=== PATIENT | male | born 1945 | race Caucasian/White ===

== ENCOUNTER 2017-06-24 18:50 | Inpatient (IN) | payer MEDICARE, OTHER ==
[~2017-06-24] VITALS: Ht 182.9 cm; Wt 121.0 kg
[2017-06-24] MEDS: MIDAZOLAM DRIP 50 mg/50mL 50 ML IV SCH (19:15)
[2017-06-24 21:03] LABS: Basophils # (auto) 0 uL; Basophils % (auto) 0.2 % (0.0-2.0); Eosinophils # (auto) 0 uL; Hematocrit 37.7 % (41.0-53.0); Hemoglobin 12.5 g/dL (13.5-17.5); Lymphocytes # (auto) 0.6 uL; Mean Corpuscular Hemoglobin 31.4 pg (28.0-32.0); Mean Corpuscular Hgb Conc. 33.2 g/dL (32.0-36.0); Mean Corpuscular Volume 94.4 fL (80.0-100.0); Monocytes # (auto) 0.6 uL; Monocytes % (auto) 8.4 % (0.0-12.0); Neutrophils # (auto) 5.9 uL; Neutrophils % (auto) 83.4 % (37.0-80.0); Nucleated Red Blood Cells % 0.2 %; Platelet Count (auto) 177 10^3/uL (140-450); Red Cell Distribution Width 13.4 % (11.8-14.3)
[2017-06-24 21:16] LABS: INR 1.24 (0.9-1.15); Partial Thromboplastin Time 28.1 sec (22.64-33.71); Prothrombin Time 13.6 sec (9.37-12.3)
[2017-06-24 21:29] LABS: Albumin 2.6 g/dL (3.4-5.0); BUN/Creatinine Ratio 12.7; Bilirubin, Total 0.6 mg/dL (0.2-1.0); Calcium 7.4 mg/dL (8.5-10.1); Magnesium 1.4 mg/dL (1.6-2.6); Potassium 3.5 mmol/L (3.5-5.1); Total Protein 5.9 g/dL (6.4-8.2)
[2017-06-24 21:32] LABS: Lactic Acid w/Reflex 2.2 mmol/L (0.4-2.0)
[2017-06-24] MEDS ORDERED: SODIUM CHLORIDE 0.9% 2,000 ML IV ONE (22:30)
[2017-06-24 22:33] VITALS: BP 142/90
[2017-06-24] MEDS ORDERED: PROPOFOL 100 ML IV ONE (23:30)
[2017-06-24] MEDS: PROPOFOL 100 ML IV SCH (23:46)
[2017-06-25] VITALS (26 sets, daily range): BP systolic 104–133; BP diastolic 59–101
[2017-06-25] MEDS ORDERED: VANCOMYCIN PER PHARMACY 0 MG IV SCH (00:15)
[2017-06-25] MEDS ORDERED: FUROSEMIDE 40 MG/4 ML VIAL IV ONE (00:15)
[2017-06-25] MEDS ORDERED: VANCOMYCIN 1GM/250ML 250 ML IV ONE (00:30)
[2017-06-25 03:35] LABS: Urine WBC None Seen /hpf (0 - 3)
[2017-06-25 04:08] LABS: Alcohol, Urine < 3.0 mg/dL (0-5); Amphetamine Screen, Urine NEGATIVE (NEGATIVE); Barbiturate Scree,Urine NEGATIVE (NEGATIVE); Benzodiazephine Screen, Urine POSITIVE (NEGATIVE); Cannabinoid Screen, Urine NEGATIVE (NEGATIVE); Cocaine Screen, Urine NEGATIVE (NEGATIVE); Opiate Scree,Urine NEGATIVE (NEGATIVE); Phencyclidine Screen, Urine NEGATIVE (NEGATIVE)
[2017-06-25 04:19] LABS: Urine Blood Trace /uL (Negative)
[2017-06-25 04:30] LABS: Urine Bacteria FEW /hpf (None Seen); Urine Hyaline Cast 1+ /lpf (0 - 2)
[2017-06-25 04:31] LABS: Urine Mucus FEW (None Seen)
[2017-06-25 06:01] LABS: Basophils # (auto) 0 uL; Basophils % (auto) 0.1 % (0.0-2.0); Eosinophils # (auto) 0 uL; Hematocrit 33.5 % (41.0-53.0); Hemoglobin 11.1 g/dL (13.5-17.5); Lymphocytes # (auto) 0.7 uL; Lymphocytes % (auto) 13.7 % (10.0-50.0); Mean Corpuscular Hgb Conc. 33.1 g/dL (32.0-36.0); Mean Corpuscular Volume 93.6 fL (80.0-100.0); Monocytes # (auto) 0.7 uL; Monocytes % (auto) 14.2 % (0.0-12.0); Neutrophils # (auto) 3.5 uL; Nucleated Red Blood Cells % 0.1 %; Platelet Count (auto) 154 10^3/uL (140-450); Red Blood Cells 3.57 10^6/uL (4.5-5.90); Red Cell Distribution Width 13.6 % (11.8-14.3); White Blood Cell 4.9 10^3/uL (4.4-10.8)
[2017-06-25 06:38] LABS: BUN/Creatinine Ratio 12.4; Calcium 7.3 mg/dL (8.5-10.1)
[2017-06-25 06:43] LABS: Potassium 2.7 mmol/L (3.5-5.1)
[2017-06-25] MEDS: PANTOPRAZOLE 40 MG/10 ML VIAL IV SCH (08:13)
[2017-06-25] MEDS: POTASSIUM CHL 20MEQ/50ML 50 ML IV SCH ×2 (08:13→09:04)
[2017-06-25] MEDS: ENOXAPARIN SOD 30 MG/0.3 ML SYRINGE SC SCH (08:13)
[2017-06-25] MEDS: VANCOMYCIN 1,500 MG in D5W 5% 250 ML IV SCH ×2 (11:07→22:46)
[2017-06-25 15:41] LABS: Potassium 3.4 mmol/L (3.5-5.1)
[2017-06-25] MEDS ORDERED: PIPERACILLIN-TAZOB 3.375GM 50 ML IV SCH (17:00)
[2017-06-25] MEDS: MIDAZOLAM DRIP 50 mg/50mL 50 ML IV SCH ×2 (17:55→22:46)
[2017-06-25] MEDS: LEVOFLOXACIN 750MG 150 ML IV SCH (18:01)
[2017-06-25] MEDS: PROPOFOL 100 ML IV SCH (23:46)
[2017-06-26] VITALS (55 sets, daily range): BP systolic 106–164; BP diastolic 63–96
[2017-06-26] MEDS: MIDAZOLAM DRIP 50 mg/50mL 50 ML IV SCH (04:20)
[2017-06-26] MEDS ORDERED: ATOR10TA PO (04:35)
[2017-06-26] MEDS ORDERED: LISI-646 PO (04:35)
[2017-06-26] MEDS ORDERED: ATEN50TA PO (04:35)
[2017-06-26] MEDS ORDERED: FURO40TA PO (04:35)
[2017-06-26] MEDS ORDERED: ALLO300T2 PO (04:35)
[2017-06-26] MEDS ORDERED: ASPI81CH43 PO (04:35)
[2017-06-26 04:39] LABS: Basophils # (auto) 0 uL; Basophils % (auto) 0.3 % (0.0-2.0); Eosinophils # (auto) 0 uL; Eosinophils % (auto) 0.1 % (0.0-7.0); Hematocrit 33.5 % (41.0-53.0); Lymphocytes # (auto) 0.9 uL; Lymphocytes % (auto) 14.6 % (10.0-50.0); Mean Corpuscular Hemoglobin 30.7 pg (28.0-32.0); Mean Corpuscular Hgb Conc. 32.9 g/dL (32.0-36.0); Mean Corpuscular Volume 93.4 fL (80.0-100.0); Monocytes % (auto) 15.7 % (0.0-12.0); Neutrophils # (auto) 4.2 uL; Neutrophils % (auto) 69.3 % (37.0-80.0); Nucleated Red Blood Cells % 0.1 %; Platelet Count (auto) 153 10^3/uL (140-450); Red Blood Cells 3.58 10^6/uL (4.5-5.90); Red Cell Distribution Width 13.6 % (11.8-14.3); White Blood Cell 6.1 10^3/uL (4.4-10.8)
[2017-06-26 05:10] LABS: Albumin 2.2 g/dL (3.4-5.0); BUN/Creatinine Ratio 16.2; Calcium 7.5 mg/dL (8.5-10.1); Potassium 3.2 mmol/L (3.5-5.1)
[2017-06-26 05:13] LABS: Bilirubin, Total 0.6 mg/dL (0.2-1.0); Total Protein 5.2 g/dL (6.4-8.2)
[2017-06-26] MEDS ORDERED: POTASSIUM CHLORIDE 40 MEQ, LIDOCAINE 1% (LOCAL ANESTH.) 4 ML in SODIUM CHL 0.9% 100 ML IV ONE (09:00)
[2017-06-26] MEDS ORDERED: SODIUM CHLORIDE 0.9% 1,000 ML IV ONE (09:00)
[2017-06-26] MEDS: PANTOPRAZOLE 40 MG/10 ML VIAL IV SCH (10:14)
[2017-06-26] MEDS: ENOXAPARIN SOD 30 MG/0.3 ML SYRINGE SC SCH (10:15)
[2017-06-26] MEDS: POTASSIUM CHL 20MEQ/50ML 50 ML IV SCH ×2 (19:15→21:20)
[2017-06-26] MEDS: LEVOFLOXACIN 750MG 150 ML IV SCH (19:16)
[2017-06-26] MEDS ORDERED: IOHEXOL 350 MG/ML 100ML IJ ONE (21:42)
[2017-06-26] MEDS: CARVEDILOL 3.125 MG TAB NG SCH (22:28)
[2017-06-26] MEDS: VANCOMYCIN 1,500 MG in D5W 5% 250 ML IV SCH (22:28)
[2017-06-26] MEDS: PROPOFOL 100 ML IV SCH (23:46)
[2017-06-27] VITALS (93 sets, daily range): BP systolic 102–154; BP diastolic 65–99
[2017-06-27 04:21] LABS: Basophils # (auto) 0 uL; Basophils % (auto) 0.3 % (0.0-2.0); Eosinophils # (auto) 0 uL; Eosinophils % (auto) 0.1 % (0.0-7.0); Hematocrit 35.1 % (41.0-53.0); Hemoglobin 11.3 g/dL (13.5-17.5); Lymphocytes # (auto) 0.8 uL; Lymphocytes % (auto) 10.6 % (10.0-50.0); Mean Corpuscular Hemoglobin 30.3 pg (28.0-32.0); Mean Corpuscular Hgb Conc. 32.2 g/dL (32.0-36.0); Mean Corpuscular Volume 93.8 fL (80.0-100.0); Monocytes # (auto) 1.3 uL; Monocytes % (auto) 16.1 % (0.0-12.0); Neutrophils # (auto) 5.8 uL; Neutrophils % (auto) 72.9 % (37.0-80.0); Nucleated Red Blood Cells % 0.1 %; Platelet Count (auto) 173 10^3/uL (140-450); Red Blood Cells 3.74 10^6/uL (4.5-5.90); Red Cell Distribution Width 13.7 % (11.8-14.3)
[2017-06-27 05:20] LABS: Albumin 2.1 g/dL (3.4-5.0); BUN/Creatinine Ratio 18.6; Bilirubin, Total 0.6 mg/dL (0.2-1.0); Calcium 7.5 mg/dL (8.5-10.1); Potassium 3.9 mmol/L (3.5-5.1); Total Protein 5.3 g/dL (6.4-8.2)
[2017-06-27] MEDS: PANTOPRAZOLE 40 MG/10 ML VIAL IV SCH (09:49)
[2017-06-27] MEDS: MIDAZOLAM DRIP 50 mg/50mL 50 ML IV SCH (09:50)
[2017-06-27] MEDS: ENOXAPARIN SOD 30 MG/0.3 ML SYRINGE SC SCH (09:50)
[2017-06-27] MEDS: LISINOPRIL 5 MG TAB PO SCH (09:51)
[2017-06-27] MEDS: CARVEDILOL 3.125 MG TAB NG SCH ×2 (09:51→21:32)
[2017-06-27] MEDS ORDERED: SODIUM CHLORIDE 0.9% 1,000 ML IV ONE (11:15)
[2017-06-27] MEDS: LEVOFLOXACIN 750MG 150 ML IV SCH (18:23)
[2017-06-27] MEDS: VANCOMYCIN 1,500 MG in D5W 5% 250 ML IV SCH (21:32)
[2017-06-27] MEDS: PROPOFOL 100 ML IV SCH (23:46)
[2017-06-28] VITALS (62 sets, daily range): BP systolic 94–168; BP diastolic 55–116
[2017-06-28 03:22] LABS: Basophils # (auto) 0.2 uL; Basophils % (auto) 1.9 % (0.0-2.0); Eosinophils # (auto) 0.1 uL; Eosinophils % (auto) 0.7 % (0.0-7.0); Hematocrit 35.4 % (41.0-53.0); Hemoglobin 11.5 g/dL (13.5-17.5); Lymphocytes % (auto) 10.2 % (10.0-50.0); Mean Corpuscular Hemoglobin 30.4 pg (28.0-32.0); Mean Corpuscular Hgb Conc. 32.5 g/dL (32.0-36.0); Mean Corpuscular Volume 93.5 fL (80.0-100.0); Monocytes # (auto) 1.4 uL; Monocytes % (auto) 14.1 % (0.0-12.0); Neutrophils # (auto) 7.3 uL; Neutrophils % (auto) 73.1 % (37.0-80.0); Platelet Count (auto) 181 10^3/uL (140-450); Red Blood Cells 3.79 10^6/uL (4.5-5.90); Red Cell Distribution Width 13.5 % (11.8-14.3)
[2017-06-28 03:43] LABS: BUN/Creatinine Ratio 16.5; Bilirubin, Total 0.6 mg/dL (0.2-1.0); Calcium 7.5 mg/dL (8.5-10.1); Potassium 3.3 mmol/L (3.5-5.1); Total Protein 5.2 g/dL (6.4-8.2)
[2017-06-28] MEDS: PANTOPRAZOLE 40 MG/10 ML VIAL IV SCH (09:53)
[2017-06-28] MEDS: ENOXAPARIN SOD 40 MG/0.4 ML SYRINGE SC SCH (09:53)
[2017-06-28] MEDS: CARVEDILOL 3.125 MG TAB NG SCH ×2 (09:54→22:04)
[2017-06-28] MEDS: LISINOPRIL 5 MG TAB PO SCH (10:08)
[2017-06-28] MEDS ORDERED: POTASSIUM CHL 20MEQ/50ML 50 ML IV ONE (11:30)
[2017-06-28] MEDS: MIDAZOLAM DRIP 50 mg/50mL 50 ML IV SCH (16:48)
[2017-06-28] MEDS: LEVOFLOXACIN 750MG 150 ML IV SCH (17:32)
[2017-06-28] MEDS: VANCOMYCIN 1,500 MG in D5W 5% 250 ML IV SCH (23:36)
[2017-06-28] MEDS: PROPOFOL 100 ML IV SCH (23:46)
[2017-06-29] VITALS (63 sets, daily range): BP systolic 102–156; BP diastolic 61–99
[2017-06-29 04:11] LABS: Basophils # (auto) 0 uL; Basophils % (auto) 0.2 % (0.0-2.0); Eosinophils # (auto) 0.1 uL; Eosinophils % (auto) 1.2 % (0.0-7.0); Hematocrit 33.9 % (41.0-53.0); Lymphocytes % (auto) 9.7 % (10.0-50.0); Mean Corpuscular Hemoglobin 30.5 pg (28.0-32.0); Mean Corpuscular Hgb Conc. 32.5 g/dL (32.0-36.0); Mean Corpuscular Volume 93.7 fL (80.0-100.0); Monocytes # (auto) 1.5 uL; Monocytes % (auto) 15.6 % (0.0-12.0); Neutrophils # (auto) 7.2 uL; Neutrophils % (auto) 73.3 % (37.0-80.0); Platelet Count (auto) 203 10^3/uL (140-450); Red Blood Cells 3.62 10^6/uL (4.5-5.90); Red Cell Distribution Width 13.3 % (11.8-14.3); White Blood Cell 9.8 10^3/uL (4.4-10.8)
[2017-06-29 04:31] LABS: BUN/Creatinine Ratio 17.9; Bilirubin, Total 0.5 mg/dL (0.2-1.0); Calcium 7.7 mg/dL (8.5-10.1); Potassium 3.4 mmol/L (3.5-5.1); Total Protein 5.3 g/dL (6.4-8.2)
[2017-06-29] MEDS: CARVEDILOL 3.125 MG TAB NG SCH ×2 (10:05→21:49)
[2017-06-29] MEDS: PANTOPRAZOLE 40 MG/10 ML VIAL IV SCH (10:05)
[2017-06-29] MEDS: LISINOPRIL 5 MG TAB PO SCH (10:06)
[2017-06-29] MEDS: ENOXAPARIN SOD 40 MG/0.4 ML SYRINGE SC SCH (10:06)
[2017-06-29] MEDS ORDERED: POTASSIUM CHL 20MEQ/50ML 50 ML IV ONE ×2 (11:15→18:00)
[2017-06-29] MEDS: cloNIDine HCL 0.1 MG TAB PO PRN (15:30)
[2017-06-29] MEDS: LEVOFLOXACIN 750MG 150 ML IV SCH (17:43)
[2017-06-29] MEDS: methylPREDNISolone SOD SUCC 40 MG/ML VL IV SCH ×2 (18:00→23:45)
[2017-06-29] MEDS: IPRATROPIUM BROM 0.5 MG/2.5ML INH SOL NEB SCH (18:49)
[2017-06-29] MEDS: BUDESONIDE (INHALATION) 0.5 MG/2 ML NEB NEB SCH (18:50)
[2017-06-29] MEDS: ALBUTEROL SULF 2.5 MG/0.5ML(0.5%) NEB SOLN NEB SCH (18:50)
[2017-06-29] MEDS: MIDAZOLAM DRIP 50 mg/50mL 50 ML IV SCH (20:38)
[2017-06-29] MEDS: VANCOMYCIN 1,500 MG in D5W 5% 250 ML IV SCH (23:32)
[2017-06-30] VITALS (23 sets, daily range): BP systolic 122–164; BP diastolic 63–100
[2017-06-30] MEDS: PROPOFOL 100 ML IV SCH ×2 (00:49→23:46)
[2017-06-30 04:08] LABS: Basophils # (auto) 0 uL; Basophils % (auto) 0.2 % (0.0-2.0); Eosinophils # (auto) 0 uL; Hematocrit 36.8 % (41.0-53.0); Hemoglobin 11.6 g/dL (13.5-17.5); Lymphocytes # (auto) 0.3 uL; Lymphocytes % (auto) 6.2 % (10.0-50.0); Mean Corpuscular Hemoglobin 29.3 pg (28.0-32.0); Mean Corpuscular Hgb Conc. 31.4 g/dL (32.0-36.0); Mean Corpuscular Volume 93.3 fL (80.0-100.0); Monocytes # (auto) 0.1 uL; Monocytes % (auto) 1.5 % (0.0-12.0); Neutrophils # (auto) 4.6 uL; Neutrophils % (auto) 92.1 % (37.0-80.0); Platelet Count (auto) 231 10^3/uL (140-450); Red Blood Cells 3.95 10^6/uL (4.5-5.90); Red Cell Distribution Width 13.1 % (11.8-14.3)
[2017-06-30] MEDS: cloNIDine HCL 0.1 MG TAB PO PRN (04:13)
[2017-06-30 04:26] LABS: Albumin 2.2 g/dL (3.4-5.0); BUN/Creatinine Ratio 21.6; Calcium 8.7 mg/dL (8.5-10.1); Potassium 4.1 mmol/L (3.5-5.1)
[2017-06-30 04:29] LABS: Bilirubin, Total 0.5 mg/dL (0.2-1.0); Total Protein 5.7 g/dL (6.4-8.2)
[2017-06-30] MEDS: methylPREDNISolone SOD SUCC 40 MG/ML VL IV SCH ×4 (06:20→23:51)
[2017-06-30] MEDS: IPRATROPIUM BROM 0.5 MG/2.5ML INH SOL NEB SCH ×4 (06:56→18:00)
[2017-06-30] MEDS: ALBUTEROL SULF 2.5 MG/0.5ML(0.5%) NEB SOLN NEB SCH ×4 (06:56→18:00)
[2017-06-30] MEDS: BUDESONIDE (INHALATION) 0.5 MG/2 ML NEB NEB SCH ×2 (10:19→18:00)
[2017-06-30] MEDS ORDERED: DEXTROSE (50%) 50ML SYRG IV PRN (10:45)
[2017-06-30] MEDS: PANTOPRAZOLE 40 MG/10 ML VIAL IV SCH (11:12)
[2017-06-30] MEDS: CARVEDILOL 3.125 MG TAB NG SCH ×2 (11:12→22:20)
[2017-06-30] MEDS: ENOXAPARIN SOD 40 MG/0.4 ML SYRINGE SC SCH (11:12)
[2017-06-30] MEDS: LISINOPRIL 5 MG TAB PO SCH (11:13)
[2017-06-30] MEDS: InsuLIN REG 1unit/0.01ml Soln (100units/ml) SC SCH ×3 (12:00→23:52)
[2017-06-30] MEDS: ACCU-CHEK COMFORT CURVE STRIP VI SCH ×3 (12:42→23:51)
[2017-06-30] MEDS: LEVOFLOXACIN 750MG 150 ML IV SCH (17:12)
[2017-06-30] MEDS: D5W/SOD CHLO 0.9% 1,000 ML IV SCH (17:13)
[2017-06-30] MEDS: ACETAMINOPHEN 650 mg PER 20 mL UD GT PRN (17:30)
[2017-06-30] MEDS: MIDAZOLAM DRIP 50 mg/50mL 50 ML IV SCH (19:24)
[2017-06-30] MEDS: VANCOMYCIN 1,500 MG in D5W 5% 250 ML IV SCH (23:09)
[2017-07-01] VITALS (18 sets, daily range): BP systolic 122–178; BP diastolic 54–108
[2017-07-01] MEDS: D5W/SOD CHLO 0.9% 1,000 ML IV SCH (00:05)
[2017-07-01] MEDS: cloNIDine HCL 0.1 MG TAB PO PRN (04:07)
[2017-07-01 05:23] LABS: Basophils # (auto) 0 uL; Basophils % (auto) 0.7 % (0.0-2.0); Eosinophils # (auto) 0 uL; Hematocrit 33.2 % (41.0-53.0); Hemoglobin 10.7 g/dL (13.5-17.5); Lymphocytes # (auto) 0.3 uL; Lymphocytes % (auto) 5.7 % (10.0-50.0); Mean Corpuscular Hemoglobin 29.8 pg (28.0-32.0); Mean Corpuscular Hgb Conc. 32.2 g/dL (32.0-36.0); Mean Corpuscular Volume 92.5 fL (80.0-100.0); Monocytes # (auto) 0.3 uL; Neutrophils % (auto) 87.6 % (37.0-80.0); Platelet Count (auto) 238 10^3/uL (140-450); Red Blood Cells 3.59 10^6/uL (4.5-5.90); Red Cell Distribution Width 13.4 % (11.8-14.3); White Blood Cell 5.7 10^3/uL (4.4-10.8)
[2017-07-01] MEDS: ACCU-CHEK COMFORT CURVE STRIP VI SCH ×3 (05:34→17:57)
[2017-07-01 05:47] LABS: BUN/Creatinine Ratio 25.7; Calcium 8.5 mg/dL (8.5-10.1); Potassium 3.5 mmol/L (3.5-5.1)
[2017-07-01] MEDS: BUDESONIDE (INHALATION) 0.5 MG/2 ML NEB NEB SCH ×2 (06:10→19:01)
[2017-07-01] MEDS: ALBUTEROL SULF 2.5 MG/0.5ML(0.5%) NEB SOLN NEB SCH ×4 (06:10→19:01)
[2017-07-01] MEDS: IPRATROPIUM BROM 0.5 MG/2.5ML INH SOL NEB SCH ×4 (06:10→19:01)
[2017-07-01] MEDS: methylPREDNISolone SOD SUCC 40 MG/ML VL IV SCH ×3 (06:20→17:56)
[2017-07-01] MEDS: InsuLIN REG 1unit/0.01ml Soln (100units/ml) SC SCH ×3 (06:20→17:57)
[2017-07-01] MEDS: CARVEDILOL 3.125 MG TAB NG SCH ×2 (10:20→22:04)
[2017-07-01] MEDS: ENOXAPARIN SOD 40 MG/0.4 ML SYRINGE SC SCH (10:21)
[2017-07-01] MEDS: LISINOPRIL 5 MG TAB PO SCH (10:21)
[2017-07-01] MEDS: PANTOPRAZOLE 40 MG/10 ML VIAL IV SCH (10:21)
[2017-07-01] MEDS ORDERED: METOPROLOL TARTRATE 25 MG TAB PO ONE (11:15)
[2017-07-01] MEDS: LEVOFLOXACIN 750MG 150 ML IV SCH (18:01)
[2017-07-01] MEDS: METOPROLOL TARTRATE 25 MG TAB PO SCH (22:04)
[2017-07-01] MEDS: PROPOFOL 100 ML IV SCH (23:46)
[2017-07-02] VITALS (7 sets, daily range): BP systolic 142–176; BP diastolic 84–96
[2017-07-02] MEDS: methylPREDNISolone SOD SUCC 40 MG/ML VL IV SCH ×5 (00:45→23:16)
[2017-07-02] MEDS: VANCOMYCIN 1,500 MG in D5W 5% 250 ML IV SCH ×2 (00:45→22:53)
[2017-07-02] MEDS: D5W/SOD CHLO 0.9% 1,000 ML IV SCH ×3 (00:48→14:55)
[2017-07-02] MEDS: cloNIDine HCL 0.1 MG TAB PO PRN (03:31)
[2017-07-02] MEDS: ACCU-CHEK COMFORT CURVE STRIP VI SCH ×5 (05:31→23:32)
[2017-07-02] MEDS: InsuLIN REG 1unit/0.01ml Soln (100units/ml) SC SCH ×5 (05:31→23:16)
[2017-07-02] MEDS: IPRATROPIUM BROM 0.5 MG/2.5ML INH SOL NEB SCH ×4 (06:19→19:31)
[2017-07-02] MEDS: BUDESONIDE (INHALATION) 0.5 MG/2 ML NEB NEB SCH ×2 (06:19→19:31)
[2017-07-02] MEDS: ALBUTEROL SULF 2.5 MG/0.5ML(0.5%) NEB SOLN NEB SCH ×4 (06:19→19:31)
[2017-07-02] MEDS: CARVEDILOL 3.125 MG TAB NG SCH ×2 (10:00→21:26)
[2017-07-02] MEDS: METOPROLOL TARTRATE 25 MG TAB PO SCH ×2 (10:00→21:25)
[2017-07-02] MEDS: LISINOPRIL 5 MG TAB PO SCH (10:09)
[2017-07-02] MEDS: ENOXAPARIN SOD 40 MG/0.4 ML SYRINGE SC SCH (10:09)
[2017-07-02] MEDS: PANTOPRAZOLE 40 MG/10 ML VIAL IV SCH (10:10)
[2017-07-02] MEDS: LEVOFLOXACIN 750MG 150 ML IV SCH (17:40)
[2017-07-03 04:16] VITALS: BP 153/101
[2017-07-03] MEDS: cloNIDine HCL 0.1 MG TAB PO PRN ×2 (04:20→15:47)
[2017-07-03] MEDS: methylPREDNISolone SOD SUCC 40 MG/ML VL IV SCH ×3 (05:31→17:56)
[2017-07-03] MEDS: ACCU-CHEK COMFORT CURVE STRIP VI SCH ×3 (05:31→17:56)
[2017-07-03] MEDS: D5W/SOD CHLO 0.9% 1,000 ML IV SCH ×2 (05:32→09:58)
[2017-07-03] MEDS: InsuLIN REG 1unit/0.01ml Soln (100units/ml) SC SCH ×3 (05:32→17:57)
[2017-07-03] MEDS: IPRATROPIUM BROM 0.5 MG/2.5ML INH SOL NEB SCH ×4 (06:05→18:35)
[2017-07-03] MEDS: ALBUTEROL SULF 2.5 MG/0.5ML(0.5%) NEB SOLN NEB SCH ×4 (06:05→18:35)
[2017-07-03 06:58] LABS: Basophils # (auto) 0 uL; Basophils % (auto) 0.1 % (0.0-2.0); Eosinophils # (auto) 0 uL; Hematocrit 32.5 % (41.0-53.0); Hemoglobin 10.8 g/dL (13.5-17.5); Lymphocytes # (auto) 0.4 uL; Mean Corpuscular Hemoglobin 30.3 pg (28.0-32.0); Mean Corpuscular Hgb Conc. 33.1 g/dL (32.0-36.0); Mean Corpuscular Volume 91.5 fL (80.0-100.0); Monocytes # (auto) 0.4 uL; Monocytes % (auto) 7.1 % (0.0-12.0); Neutrophils # (auto) 5.2 uL; Neutrophils % (auto) 85.8 % (37.0-80.0); Nucleated Red Blood Cells % 0.1 %; Platelet Count (auto) 242 10^3/uL (140-450); Red Blood Cells 3.55 10^6/uL (4.5-5.90); Red Cell Distribution Width 13.3 % (11.8-14.3); White Blood Cell 6.1 10^3/uL (4.4-10.8)
[2017-07-03 07:08] LABS: BUN/Creatinine Ratio 26.3; Calcium 8.1 mg/dL (8.5-10.1); Potassium 3.3 mmol/L (3.5-5.1)
[2017-07-03 08:00] VITALS: BP 162/90
[2017-07-03] MEDS ORDERED: POTASSIUM CHLORIDE 20 MEQ, LIDOCAINE 1% (LOCAL ANESTH.) 2 ML in SODIUM CHL 0.9% 100 ML IV ONE (09:45)
[2017-07-03] MEDS: BUDESONIDE (INHALATION) 0.5 MG/2 ML NEB NEB SCH ×2 (09:48→22:25)
[2017-07-03] MEDS: ENOXAPARIN SOD 40 MG/0.4 ML SYRINGE SC SCH (09:57)
[2017-07-03] MEDS: PANTOPRAZOLE 40 MG/10 ML VIAL IV SCH (09:58)
[2017-07-03] MEDS ORDERED: POTASSIUM CHL 20MEQ/100ML 100 ML IV ONE (10:08)
[2017-07-03] MEDS: METOPROLOL TARTRATE 25 MG TAB PO SCH (10:23)
[2017-07-03] MEDS: LISINOPRIL 5 MG TAB PO SCH (10:23)
[2017-07-03] MEDS: CARVEDILOL 3.125 MG TAB NG SCH ×2 (10:24→21:52)
[2017-07-03 11:57] VITALS: BP 168/78
[2017-07-03] MEDS ORDERED: POTASSIUM CHL 20 Meq TABLET PO ONE (12:00)
[2017-07-03 15:50] VITALS: BP 162/135
[2017-07-03] MEDS: LEVOFLOXACIN 750MG 150 ML IV SCH (18:00)
[2017-07-03 20:00] VITALS: BP 137/22
[2017-07-03] MEDS: MAGNESIUM OXIDE 400 MG TAB PO SCH (21:50)
[2017-07-03] MEDS: VANCOMYCIN 1,500 MG in D5W 5% 250 ML IV SCH ×2 (21:53→23:00)
[2017-07-03] MEDS: ACETAMINOPHEN 650 mg PER 20 mL UD GT PRN (21:53)
[2017-07-04] VITALS (7 sets, daily range): BP systolic 128–172; BP diastolic 53–107
[2017-07-04] MEDS: methylPREDNISolone SOD SUCC 40 MG/ML VL IV SCH ×5 (00:15→23:35)
[2017-07-04] MEDS: ACCU-CHEK COMFORT CURVE STRIP VI SCH ×5 (00:16→23:29)
[2017-07-04] MEDS: InsuLIN REG 1unit/0.01ml Soln (100units/ml) SC SCH ×5 (00:16→23:35)
[2017-07-04] MEDS: ALBUTEROL SULF 2.5 MG/0.5ML(0.5%) NEB SOLN NEB SCH ×4 (06:06→18:34)
[2017-07-04] MEDS: IPRATROPIUM BROM 0.5 MG/2.5ML INH SOL NEB SCH ×4 (06:06→18:34)
[2017-07-04] MEDS: D5W/SOD CHLO 0.9% 1,000 ML IV SCH ×2 (08:05→21:49)
[2017-07-04] MEDS: MAGNESIUM OXIDE 400 MG TAB PO SCH ×2 (10:00→21:46)
[2017-07-04] MEDS: ENOXAPARIN SOD 40 MG/0.4 ML SYRINGE SC SCH (10:00)
[2017-07-04] MEDS: CARVEDILOL 3.125 MG TAB NG SCH ×2 (10:00→21:45)
[2017-07-04] MEDS: LISINOPRIL 5 MG TAB PO SCH ×2 (10:00→18:02)
[2017-07-04] MEDS: BUDESONIDE (INHALATION) 0.5 MG/2 ML NEB NEB SCH ×2 (10:05→18:34)
[2017-07-04] MEDS: PANTOPRAZOLE 40 MG/10 ML VIAL IV SCH (10:17)
[2017-07-04] MEDS: hydrALAZINE HCL 20 MG/ML VL IV PRN ×2 (11:39→18:54)
[2017-07-04] MEDS ORDERED: MORPHINE SULFATE 10 MG/ML INJ 1ML SDV IV PRN (13:30)
[2017-07-04] MEDS ORDERED: HALOPERIDOL LACTATE 5 MG/ML INJ VIAL IM PRN (18:15)
[2017-07-04] MEDS ORDERED: LACTULOSE 20Gm/30ML SOLN PO ONE (18:15)
[2017-07-04] MEDS: LEVOFLOXACIN 750MG 150 ML IV SCH (18:16)
[2017-07-05] MEDS: cloNIDine HCL 0.1 MG TAB PO PRN (03:32)
[2017-07-05] MEDS ORDERED: FUROSEMIDE 40 MG/4 ML VIAL IV ONE (03:45)
[2017-07-05] MEDS ORDERED: diphenhdrAMINE HCL 50 MG/1 ML VL IV ONE (03:45)
[2017-07-05] MEDS ORDERED: FUROSEMIDE 40 MG/4 ML VIAL ONE (03:51)
[2017-07-05] MEDS ORDERED: diphenhdrAMINE HCL 50 MG/1 ML VL ONE (03:51)
[2017-07-05 04:28] VITALS: BP 163/117
[2017-07-05] MEDS: Diabetisource AC 1 Liter GT SCH (05:18)
[2017-07-05 05:35] LABS: Basophils # (auto) 0 uL; Basophils % (auto) 0.2 % (0.0-2.0); Eosinophils # (auto) 0 uL; Hematocrit 36.6 % (41.0-53.0); Hemoglobin 11.9 g/dL (13.5-17.5); Lymphocytes # (auto) 0.4 uL; Mean Corpuscular Hemoglobin 29.9 pg (28.0-32.0); Mean Corpuscular Hgb Conc. 32.4 g/dL (32.0-36.0); Mean Corpuscular Volume 92.3 fL (80.0-100.0); Monocytes # (auto) 0.7 uL; Monocytes % (auto) 7.2 % (0.0-12.0); Neutrophils # (auto) 9.1 uL; Neutrophils % (auto) 88.6 % (37.0-80.0); Platelet Count (auto) 250 10^3/uL (140-450); Red Blood Cells 3.97 10^6/uL (4.5-5.90); White Blood Cell 10.3 10^3/uL (4.4-10.8)
[2017-07-05 05:52] LABS: Albumin 2.5 g/dL (3.4-5.0); BUN/Creatinine Ratio 28.7; Calcium 8.7 mg/dL (8.5-10.1); Potassium 3.5 mmol/L (3.5-5.1)
[2017-07-05 05:55] LABS: Bilirubin, Total 0.6 mg/dL (0.2-1.0); Total Protein 5.6 g/dL (6.4-8.2)
[2017-07-05] MEDS: methylPREDNISolone SOD SUCC 40 MG/ML VL IV SCH ×3 (05:57→18:21)
[2017-07-05] MEDS: ACCU-CHEK COMFORT CURVE STRIP VI SCH ×3 (05:57→17:44)
[2017-07-05] MEDS: InsuLIN REG 1unit/0.01ml Soln (100units/ml) SC SCH ×3 (05:57→17:44)
[2017-07-05] MEDS: BUDESONIDE (INHALATION) 0.5 MG/2 ML NEB NEB SCH ×2 (07:30→19:13)
[2017-07-05] MEDS: ALBUTEROL SULF 2.5 MG/0.5ML(0.5%) NEB SOLN NEB SCH ×4 (07:30→19:12)
[2017-07-05] MEDS: IPRATROPIUM BROM 0.5 MG/2.5ML INH SOL NEB SCH ×4 (07:30→19:12)
[2017-07-05 07:55] VITALS: BP 128/86
[2017-07-05] MEDS: PANTOPRAZOLE 40 MG/10 ML VIAL IV SCH (10:06)
[2017-07-05] MEDS: ENOXAPARIN SOD 40 MG/0.4 ML SYRINGE SC SCH (10:07)
[2017-07-05] MEDS: MAGNESIUM OXIDE 400 MG TAB PO SCH ×2 (10:07→21:47)
[2017-07-05] MEDS: LISINOPRIL 5 MG TAB PO SCH (10:08)
[2017-07-05] MEDS: CARVEDILOL 3.125 MG TAB NG SCH ×2 (10:08→21:47)
[2017-07-05] MEDS: D5W/SOD CHLO 0.9% 1,000 ML IV SCH (10:45)
[2017-07-05] MEDS ORDERED: LORazepam 2MG/ML-1ML VIAL IV PRN (11:00)
[2017-07-05 12:00] VITALS: BP 156/112
[2017-07-05] MEDS: ALPRAZolam 0.5 MG TAB NG PRN (13:11)
[2017-07-05] MEDS: hydrALAZINE HCL 20 MG/ML VL IV PRN ×2 (13:18→22:07)
[2017-07-05 16:00] VITALS: BP 128/89
[2017-07-05] MEDS ORDERED: HALOPERIDOL LACTATE 5 MG/ML INJ VIAL IM PRN (17:30)
[2017-07-05] MEDS ORDERED: LEVOFLOXACIN 500MG 100 ML IV SCH (18:09)
[2017-07-05] MEDS ORDERED: LEVOFLOXACIN 250MG 50 ML IV SCH (19:00)
[2017-07-05 19:16] VITALS: BP 128/89
[2017-07-05 19:53] VITALS: BP 139/94
[2017-07-06] VITALS (7 sets, daily range): BP systolic 131–160; BP diastolic 79–104
[2017-07-06] MEDS: D5W/SOD CHLO 0.9% 1,000 ML IV SCH ×2 (01:00→15:26)
[2017-07-06] MEDS: methylPREDNISolone SOD SUCC 40 MG/ML VL IV SCH ×4 (02:49→17:26)
[2017-07-06] MEDS: ACCU-CHEK COMFORT CURVE STRIP VI SCH ×4 (02:49→17:27)
[2017-07-06] MEDS: InsuLIN REG 1unit/0.01ml Soln (100units/ml) SC SCH ×4 (02:50→18:10)
[2017-07-06] MEDS: cloNIDine HCL 0.1 MG TAB PO PRN ×2 (03:56→16:00)
[2017-07-06] MEDS: ALPRAZolam 0.5 MG TAB NG PRN (03:56)
[2017-07-06 05:30] LABS: Basophils # (auto) 0 uL; Eosinophils # (auto) 0 uL; Hematocrit 31.4 % (41.0-53.0); Hemoglobin 10.1 g/dL (13.5-17.5); Lymphocytes # (auto) 0.3 uL; Lymphocytes % (auto) 2.7 % (10.0-50.0); Mean Corpuscular Hemoglobin 29.7 pg (28.0-32.0); Mean Corpuscular Hgb Conc. 32.2 g/dL (32.0-36.0); Mean Corpuscular Volume 92.4 fL (80.0-100.0); Monocytes # (auto) 0.7 uL; Monocytes % (auto) 7.7 % (0.0-12.0); Neutrophils # (auto) 8.6 uL; Neutrophils % (auto) 89.6 % (37.0-80.0); Platelet Count (auto) 190 10^3/uL (140-450); Red Blood Cells 3.39 10^6/uL (4.5-5.90); Red Cell Distribution Width 14.2 % (11.8-14.3); White Blood Cell 9.6 10^3/uL (4.4-10.8)
[2017-07-06] MEDS: ALBUTEROL SULF 2.5 MG/0.5ML(0.5%) NEB SOLN NEB SCH ×4 (05:43→19:14)
[2017-07-06] MEDS: BUDESONIDE (INHALATION) 0.5 MG/2 ML NEB NEB SCH ×2 (05:43→19:14)
[2017-07-06] MEDS: IPRATROPIUM BROM 0.5 MG/2.5ML INH SOL NEB SCH ×4 (05:43→19:14)
[2017-07-06 05:44] LABS: Albumin 2.1 g/dL (3.4-5.0); BUN/Creatinine Ratio 33.7; Calcium 8.1 mg/dL (8.5-10.1); Potassium 3.5 mmol/L (3.5-5.1)
[2017-07-06 05:47] LABS: Bilirubin, Total 0.3 mg/dL (0.2-1.0); Total Protein 4.6 g/dL (6.4-8.2)
[2017-07-06] MEDS: PANTOPRAZOLE 40 MG/10 ML VIAL IV SCH (10:13)
[2017-07-06] MEDS: ENOXAPARIN SOD 40 MG/0.4 ML SYRINGE SC SCH (10:14)
[2017-07-06] MEDS: CARVEDILOL 3.125 MG TAB NG SCH ×2 (10:14→22:15)
[2017-07-06] MEDS: LISINOPRIL 5 MG TAB PO SCH (10:14)
[2017-07-06] MEDS: MAGNESIUM OXIDE 400 MG TAB PO SCH ×2 (10:14→22:15)
[2017-07-06] MEDS: Diabetisource AC 1 Liter GT SCH (16:53)
[2017-07-06] MEDS: LEVOFLOXACIN 500MG 100 ML IV SCH (17:26)
[2017-07-06] MEDS: ACETAMINOPHEN 650 mg PER 20 mL UD GT PRN (20:39)
[2017-07-07] MEDS: ACCU-CHEK COMFORT CURVE STRIP VI SCH ×5 (00:20→23:41)
[2017-07-07] MEDS: InsuLIN REG 1unit/0.01ml Soln (100units/ml) SC SCH ×5 (00:20→23:44)
[2017-07-07] MEDS: methylPREDNISolone SOD SUCC 40 MG/ML VL IV SCH ×5 (00:25→23:44)
[2017-07-07] MEDS: D5W/SOD CHLO 0.9% 1,000 ML IV SCH ×2 (02:45→16:02)
[2017-07-07] MEDS: hydrALAZINE HCL 20 MG/ML VL IV PRN ×2 (03:20→20:18)
[2017-07-07 03:52] VITALS: BP 159/93
[2017-07-07] MEDS: IPRATROPIUM BROM 0.5 MG/2.5ML INH SOL NEB SCH ×4 (05:48→20:37)
[2017-07-07] MEDS: ALBUTEROL SULF 2.5 MG/0.5ML(0.5%) NEB SOLN NEB SCH ×4 (05:49→20:37)
[2017-07-07 06:08] LABS: Basophils # (auto) 0 uL; Basophils % (auto) 0.1 % (0.0-2.0); Eosinophils # (auto) 0 uL; Hematocrit 37.6 % (41.0-53.0); Hemoglobin 12.1 g/dL (13.5-17.5); Lymphocytes # (auto) 0.2 uL; Lymphocytes % (auto) 2.2 % (10.0-50.0); Mean Corpuscular Hemoglobin 29.9 pg (28.0-32.0); Mean Corpuscular Hgb Conc. 32.3 g/dL (32.0-36.0); Mean Corpuscular Volume 92.5 fL (80.0-100.0); Monocytes # (auto) 0.6 uL; Neutrophils # (auto) 10.5 uL; Neutrophils % (auto) 92.7 % (37.0-80.0); Platelet Count (auto) 187 10^3/uL (140-450); Red Blood Cells 4.06 10^6/uL (4.5-5.90); Red Cell Distribution Width 14.4 % (11.8-14.3); White Blood Cell 11.4 10^3/uL (4.4-10.8)
[2017-07-07 06:19] LABS: Albumin 2.5 g/dL (3.4-5.0); BUN/Creatinine Ratio 40.9; Bilirubin, Total 0.4 mg/dL (0.2-1.0); Potassium 3.6 mmol/L (3.5-5.1); Total Protein 5.6 g/dL (6.4-8.2)
[2017-07-07] MEDS: cloNIDine HCL 0.1 MG TAB PO PRN (06:50)
[2017-07-07] MEDS: BUDESONIDE (INHALATION) 0.5 MG/2 ML NEB NEB SCH ×2 (07:45→20:37)
[2017-07-07 08:00] VITALS: BP 124/79
[2017-07-07] MEDS: PANTOPRAZOLE 40 MG/10 ML VIAL IV SCH (10:31)
[2017-07-07] MEDS: LISINOPRIL 5 MG TAB PO SCH (10:32)
[2017-07-07] MEDS: CARVEDILOL 3.125 MG TAB NG SCH ×2 (10:32→21:18)
[2017-07-07] MEDS: ENOXAPARIN SOD 40 MG/0.4 ML SYRINGE SC SCH (10:32)
[2017-07-07] MEDS: MAGNESIUM OXIDE 400 MG TAB PO SCH ×2 (10:32→21:18)
[2017-07-07 11:59] VITALS: BP 146/84
[2017-07-07 15:50] VITALS: BP 107/69
[2017-07-07] MEDS: LACTULOSE 20Gm/30ML SOLN PO PRN (17:38)
[2017-07-07] MEDS: PRO-STAT 64 30ML PO SCH (17:38)
[2017-07-07] MEDS: LEVOFLOXACIN 500MG 100 ML IV SCH (17:38)
[2017-07-07 20:00] VITALS: BP 157/103
[2017-07-08] VITALS (7 sets, daily range): BP systolic 137–178; BP diastolic 86–106
[2017-07-08] MEDS: hydrALAZINE HCL 20 MG/ML VL IV PRN (04:11)
[2017-07-08] MEDS: methylPREDNISolone SOD SUCC 40 MG/ML VL IV SCH ×4 (05:22→23:47)
[2017-07-08] MEDS: ACCU-CHEK COMFORT CURVE STRIP VI SCH ×4 (05:22→23:47)
[2017-07-08] MEDS: InsuLIN REG 1unit/0.01ml Soln (100units/ml) SC SCH ×4 (05:22→23:47)
[2017-07-08] MEDS: D5W/SOD CHLO 0.9% 1,000 ML IV SCH ×2 (05:22→18:45)
[2017-07-08 05:42] LABS: Hemoglobin 11.4 g/dL (13.5-17.5); Mean Corpuscular Hemoglobin 29.8 pg (28.0-32.0); Mean Corpuscular Hgb Conc. 32.7 g/dL (32.0-36.0); Mean Corpuscular Volume 91.4 fL (80.0-100.0); Platelet Count (auto) 179 10^3/uL (140-450); Red Blood Cells 3.83 10^6/uL (4.5-5.90); Red Cell Distribution Width 14.4 % (11.8-14.3); White Blood Cell 8.7 10^3/uL (4.4-10.8)
[2017-07-08 05:50] LABS: Band Neutrophils % (manual) 0; Basophils % (manual) 0 (0.0-2.0); Blast Cells 0; Eosinophils % (manual) 0 (0-7); Metamyelocytes % 0; Myelocytes % 0; Promyelocytes % 0; Reactive Lymphocytes 0
[2017-07-08 06:04] LABS: Albumin 2.4 g/dL (3.4-5.0); BUN/Creatinine Ratio 44.4; Calcium 8.4 mg/dL (8.5-10.1); Potassium 3.9 mmol/L (3.5-5.1)
[2017-07-08 06:06] LABS: Bilirubin, Total 0.4 mg/dL (0.2-1.0)
[2017-07-08 06:20] LABS: Lymphocytes % (manual) 2 (10.0-50.0); Monocytes % (manual) 6 (0-12)
[2017-07-08] MEDS: ALBUTEROL SULF 2.5 MG/0.5ML(0.5%) NEB SOLN NEB SCH ×4 (06:31→19:08)
[2017-07-08] MEDS: IPRATROPIUM BROM 0.5 MG/2.5ML INH SOL NEB SCH ×4 (06:31→19:09)
[2017-07-08] MEDS: BUDESONIDE (INHALATION) 0.5 MG/2 ML NEB NEB SCH ×2 (06:31→19:09)
[2017-07-08] MEDS: MAGNESIUM OXIDE 400 MG TAB PO SCH ×2 (10:13→21:30)
[2017-07-08] MEDS: ENOXAPARIN SOD 40 MG/0.4 ML SYRINGE SC SCH (10:13)
[2017-07-08] MEDS: PANTOPRAZOLE 40 MG/10 ML VIAL IV SCH (10:13)
[2017-07-08] MEDS: LISINOPRIL 5 MG TAB PO SCH (10:14)
[2017-07-08] MEDS: CARVEDILOL 3.125 MG TAB NG SCH ×2 (10:14→21:36)
[2017-07-08] MEDS: PRO-STAT 64 30ML PO SCH ×2 (10:15→18:56)
[2017-07-08] MEDS: LEVOFLOXACIN 500MG 100 ML IV SCH (18:56)
[2017-07-08] MEDS: cloNIDine HCL 0.1 MG TAB PO PRN (20:19)
[2017-07-09 04:00] VITALS: BP 142/69
[2017-07-09] MEDS: methylPREDNISolone SOD SUCC 40 MG/ML VL IV SCH ×3 (05:18→18:30)
[2017-07-09] MEDS: ACCU-CHEK COMFORT CURVE STRIP VI SCH ×3 (05:34→18:00)
[2017-07-09] MEDS: InsuLIN REG 1unit/0.01ml Soln (100units/ml) SC SCH ×3 (05:34→18:31)
[2017-07-09] MEDS: IPRATROPIUM BROM 0.5 MG/2.5ML INH SOL NEB SCH ×4 (06:16→19:25)
[2017-07-09] MEDS: ALBUTEROL SULF 2.5 MG/0.5ML(0.5%) NEB SOLN NEB SCH ×4 (06:16→19:25)
[2017-07-09] MEDS: BUDESONIDE (INHALATION) 0.5 MG/2 ML NEB NEB SCH ×2 (06:16→19:26)
[2017-07-09 08:00] VITALS: BP 148/86
[2017-07-09] MEDS: D5W/SOD CHLO 0.9% 1,000 ML IV SCH ×2 (08:05→21:25)
[2017-07-09] MEDS: PANTOPRAZOLE 40 MG/10 ML VIAL IV SCH (10:51)
[2017-07-09] MEDS: MAGNESIUM OXIDE 400 MG TAB PO SCH ×2 (10:51→22:03)
[2017-07-09] MEDS: LISINOPRIL 5 MG TAB PO SCH (10:52)
[2017-07-09] MEDS: CARVEDILOL 3.125 MG TAB NG SCH ×2 (10:52→22:03)
[2017-07-09] MEDS: ENOXAPARIN SOD 40 MG/0.4 ML SYRINGE SC SCH (10:54)
[2017-07-09] MEDS: PRO-STAT 64 30ML PO SCH ×2 (10:55→18:30)
[2017-07-09 12:18] VITALS: BP 155/88
[2017-07-09 16:13] VITALS: BP 144/81
[2017-07-09] MEDS: LEVOFLOXACIN 500MG 100 ML IV SCH (18:29)
[2017-07-09] MEDS: hydrALAZINE HCL 20 MG/ML VL IV PRN (20:29)
[2017-07-09 20:32] VITALS: BP 150/101
[2017-07-09] MEDS: cloNIDine HCL 0.1 MG TAB PO PRN (23:29)
[2017-07-10] VITALS: BP 144/100
[2017-07-10] MEDS: ACCU-CHEK COMFORT CURVE STRIP VI SCH ×4 (00:26→18:17)
[2017-07-10] MEDS: methylPREDNISolone SOD SUCC 40 MG/ML VL IV SCH ×4 (00:26→17:45)
[2017-07-10] MEDS: InsuLIN REG 1unit/0.01ml Soln (100units/ml) SC SCH ×4 (00:27→18:17)
[2017-07-10 04:00] VITALS: BP 155/101
[2017-07-10] MEDS: BUDESONIDE (INHALATION) 0.5 MG/2 ML NEB NEB SCH ×2 (07:45→22:00)
[2017-07-10] MEDS: IPRATROPIUM BROM 0.5 MG/2.5ML INH SOL NEB SCH ×4 (07:45→18:55)
[2017-07-10] MEDS: ALBUTEROL SULF 2.5 MG/0.5ML(0.5%) NEB SOLN NEB SCH ×4 (07:45→18:55)
[2017-07-10 08:00] VITALS: BP 165/106
[2017-07-10] MEDS: PRO-STAT 64 30ML PO SCH ×2 (08:00→18:00)
[2017-07-10] MEDS: hydrALAZINE HCL 20 MG/ML VL IV PRN ×2 (08:13→22:15)
[2017-07-10 09:57] LABS: Basophils # (auto) 0 uL; Basophils % (auto) 0.3 % (0.0-2.0); Eosinophils # (auto) 0 uL; Hematocrit 36.7 % (41.0-53.0); Hemoglobin 11.9 g/dL (13.5-17.5); Lymphocytes # (auto) 0.4 uL; Lymphocytes % (auto) 5.6 % (10.0-50.0); Mean Corpuscular Hemoglobin 29.7 pg (28.0-32.0); Mean Corpuscular Hgb Conc. 32.5 g/dL (32.0-36.0); Mean Corpuscular Volume 91.2 fL (80.0-100.0); Monocytes # (auto) 0.8 uL; Monocytes % (auto) 11.6 % (0.0-12.0); Neutrophils # (auto) 5.9 uL; Neutrophils % (auto) 82.5 % (37.0-80.0); Platelet Count (auto) 149 10^3/uL (140-450); Red Blood Cells 4.02 10^6/uL (4.5-5.90); Red Cell Distribution Width 14.5 % (11.8-14.3); White Blood Cell 7.1 10^3/uL (4.4-10.8)
[2017-07-10 10:14] LABS: Albumin 2.6 g/dL (3.4-5.0); BUN/Creatinine Ratio 49.4; Bilirubin, Total 0.5 mg/dL (0.2-1.0); Calcium 7.8 mg/dL (8.5-10.1); Potassium 3.6 mmol/L (3.5-5.1); Total Protein 5.2 g/dL (6.4-8.2)
[2017-07-10] MEDS: D5W/SOD CHLO 0.9% 1,000 ML IV SCH ×2 (10:45→23:30)
[2017-07-10] MEDS: CARVEDILOL 3.125 MG TAB NG SCH ×2 (11:01→22:14)
[2017-07-10] MEDS: PANTOPRAZOLE 40 MG/10 ML VIAL IV SCH (11:10)
[2017-07-10] MEDS: MAGNESIUM OXIDE 400 MG TAB PO SCH ×2 (11:11→22:14)
[2017-07-10] MEDS: ENOXAPARIN SOD 40 MG/0.4 ML SYRINGE SC SCH (11:11)
[2017-07-10] MEDS: LISINOPRIL 5 MG TAB PO SCH (11:11)
[2017-07-10 11:53] VITALS: BP 159/86
[2017-07-10 16:00] VITALS: BP 117/68
[2017-07-10] MEDS: LEVOFLOXACIN 500MG 100 ML IV SCH (17:45)
[2017-07-10 19:57] VITALS: BP 141/90
[2017-07-11] VITALS: BP 170/120
[2017-07-11] MEDS: hydrALAZINE HCL 20 MG/ML VL IV PRN ×2 (03:12→16:19)
[2017-07-11 05:35] LABS: Basophils # (auto) 0 uL; Basophils % (auto) 0.1 % (0.0-2.0); Eosinophils # (auto) 0 uL; Hematocrit 36.7 % (41.0-53.0); Hemoglobin 12.1 g/dL (13.5-17.5); Lymphocytes # (auto) 0.2 uL; Lymphocytes % (auto) 2.6 % (10.0-50.0); Mean Corpuscular Hemoglobin 30.1 pg (28.0-32.0); Mean Corpuscular Hgb Conc. 32.9 g/dL (32.0-36.0); Mean Corpuscular Volume 91.5 fL (80.0-100.0); Monocytes # (auto) 0.6 uL; Monocytes % (auto) 6.2 % (0.0-12.0); Neutrophils # (auto) 8.5 uL; Neutrophils % (auto) 91.1 % (37.0-80.0); Platelet Count (auto) 152 10^3/uL (140-450); Red Blood Cells 4.01 10^6/uL (4.5-5.90); Red Cell Distribution Width 14.8 % (11.8-14.3); White Blood Cell 9.4 10^3/uL (4.4-10.8)
[2017-07-11] MEDS: methylPREDNISolone SOD SUCC 40 MG/ML VL IV SCH ×5 (06:00→23:55)
[2017-07-11] MEDS: InsuLIN REG 1unit/0.01ml Soln (100units/ml) SC SCH ×5 (06:00→23:55)
[2017-07-11] MEDS: ACCU-CHEK COMFORT CURVE STRIP VI SCH ×5 (06:00→23:55)
[2017-07-11 06:19] LABS: Albumin 2.5 g/dL (3.4-5.0); BUN/Creatinine Ratio 50.7; Bilirubin, Total 0.6 mg/dL (0.2-1.0); Calcium 7.8 mg/dL (8.5-10.1); Potassium 3.4 mmol/L (3.5-5.1); Total Protein 5.1 g/dL (6.4-8.2)
[2017-07-11] MEDS: IPRATROPIUM BROM 0.5 MG/2.5ML INH SOL NEB SCH ×4 (06:52→18:38)
[2017-07-11] MEDS: ALBUTEROL SULF 2.5 MG/0.5ML(0.5%) NEB SOLN NEB SCH ×4 (06:53→18:38)
[2017-07-11] MEDS: BUDESONIDE (INHALATION) 0.5 MG/2 ML NEB NEB SCH ×2 (06:53→18:39)
[2017-07-11 08:00] VITALS: BP 174/101
[2017-07-11] MEDS: cloNIDine HCL 0.1 MG TAB PO PRN (08:16)
[2017-07-11] MEDS: PRO-STAT 64 30ML PO SCH ×2 (08:16→17:51)
[2017-07-11] MEDS: PANTOPRAZOLE 40 MG/10 ML VIAL IV SCH (10:13)
[2017-07-11] MEDS: ENOXAPARIN SOD 40 MG/0.4 ML SYRINGE SC SCH (10:13)
[2017-07-11] MEDS: LISINOPRIL 5 MG TAB PO SCH (10:14)
[2017-07-11] MEDS: MAGNESIUM OXIDE 400 MG TAB PO SCH ×2 (10:14→22:20)
[2017-07-11] MEDS: CARVEDILOL 3.125 MG TAB NG SCH ×2 (10:14→22:20)
[2017-07-11 12:00] VITALS: BP 149/90
[2017-07-11] MEDS: D5W/SOD CHLO 0.9% 1,000 ML IV SCH (15:33)
[2017-07-11 16:00] VITALS: BP 153/100
[2017-07-11] MEDS: LEVOFLOXACIN 500MG 100 ML IV SCH (17:50)
[2017-07-11 19:50] VITALS: BP 160/93
[2017-07-12] MEDS: D5W/SOD CHLO 0.9% 1,000 ML IV SCH ×2 (02:45→17:04)
[2017-07-12 05:56] LABS: Basophils # (auto) 0 uL; Eosinophils # (auto) 0 uL; Eosinophils % (auto) 0.2 % (0.0-7.0); Hematocrit 35.2 % (41.0-53.0); Hemoglobin 11.6 g/dL (13.5-17.5); Lymphocytes # (auto) 0.8 uL; Mean Corpuscular Hemoglobin 30.1 pg (28.0-32.0); Mean Corpuscular Hgb Conc. 32.9 g/dL (32.0-36.0); Mean Corpuscular Volume 91.5 fL (80.0-100.0); Monocytes # (auto) 1.3 uL; Monocytes % (auto) 12.1 % (0.0-12.0); Neutrophils # (auto) 8.4 uL; Neutrophils % (auto) 79.7 % (37.0-80.0); Platelet Count (auto) 140 10^3/uL (140-450); Red Blood Cells 3.85 10^6/uL (4.5-5.90); Red Cell Distribution Width 14.6 % (11.8-14.3); White Blood Cell 10.6 10^3/uL (4.4-10.8)
[2017-07-12] MEDS: InsuLIN REG 1unit/0.01ml Soln (100units/ml) SC SCH ×3 (06:00→17:42)
[2017-07-12] MEDS: methylPREDNISolone SOD SUCC 40 MG/ML VL IV SCH ×3 (06:06→17:41)
[2017-07-12] MEDS: ACCU-CHEK COMFORT CURVE STRIP VI SCH ×3 (06:06→17:42)
[2017-07-12] MEDS: IPRATROPIUM BROM 0.5 MG/2.5ML INH SOL NEB SCH ×4 (06:08→19:10)
[2017-07-12] MEDS: ALBUTEROL SULF 2.5 MG/0.5ML(0.5%) NEB SOLN NEB SCH ×4 (06:08→19:10)
[2017-07-12 06:20] LABS: Albumin 2.3 g/dL (3.4-5.0); Bilirubin, Total 0.6 mg/dL (0.2-1.0); Calcium 7.5 mg/dL (8.5-10.1); Potassium 3.2 mmol/L (3.5-5.1); Total Protein 4.7 g/dL (6.4-8.2)
[2017-07-12 06:42] VITALS: BP 138/80
[2017-07-12] MEDS ORDERED: POTASSIUM CHL 20 Meq TABLET PO ONE (06:45)
[2017-07-12 08:00] VITALS: BP 158/89
[2017-07-12] MEDS: BUDESONIDE (INHALATION) 0.5 MG/2 ML NEB NEB SCH ×2 (10:00→19:10)
[2017-07-12] MEDS: PANTOPRAZOLE 40 MG/10 ML VIAL IV SCH (10:56)
[2017-07-12] MEDS: PRO-STAT 64 30ML PO SCH ×2 (10:56→17:41)
[2017-07-12] MEDS: MAGNESIUM OXIDE 400 MG TAB PO SCH ×2 (10:57→22:08)
[2017-07-12] MEDS: LISINOPRIL 5 MG TAB PO SCH (10:57)
[2017-07-12] MEDS: CARVEDILOL 3.125 MG TAB NG SCH ×2 (10:57→22:09)
[2017-07-12] MEDS: ENOXAPARIN SOD 40 MG/0.4 ML SYRINGE SC SCH (10:57)
[2017-07-12 13:00] VITALS: BP 143/84
[2017-07-12 17:00] VITALS: BP 156/111
[2017-07-12] MEDS: LEVOFLOXACIN 500MG 100 ML IV SCH (17:41)
[2017-07-12] MEDS ORDERED: POTASSIUM CHL 10% (20 MEQ/15ML) 15ml ORAL SOLN GT ONE (18:00)
[2017-07-12 21:44] VITALS: BP 162/78
[2017-07-12] MEDS: hydrALAZINE HCL 20 MG/ML VL IV PRN (23:34)
[2017-07-13] MEDS: methylPREDNISolone SOD SUCC 40 MG/ML VL IV SCH ×4 (00:34→18:28)
[2017-07-13] MEDS: ACCU-CHEK COMFORT CURVE STRIP VI SCH ×4 (00:34→18:28)
[2017-07-13] MEDS: InsuLIN REG 1unit/0.01ml Soln (100units/ml) SC SCH ×4 (00:42→18:29)
[2017-07-13 05:00] VITALS: BP 156/81
[2017-07-13] MEDS: D5W/SOD CHLO 0.9% 1,000 ML IV SCH ×2 (05:25→18:29)
[2017-07-13] MEDS: IPRATROPIUM BROM 0.5 MG/2.5ML INH SOL NEB SCH ×4 (06:24→20:24)
[2017-07-13] MEDS: ALBUTEROL SULF 2.5 MG/0.5ML(0.5%) NEB SOLN NEB SCH ×4 (06:24→20:24)
[2017-07-13 07:47] LABS: Basophils # (auto) 0 uL; Basophils % (auto) 0.4 % (0.0-2.0); Eosinophils # (auto) 0 uL; Hematocrit 37.4 % (41.0-53.0); Hemoglobin 12.2 g/dL (13.5-17.5); Lymphocytes # (auto) 0.3 uL; Lymphocytes % (auto) 4.1 % (10.0-50.0); Mean Corpuscular Hemoglobin 29.8 pg (28.0-32.0); Mean Corpuscular Hgb Conc. 32.5 g/dL (32.0-36.0); Mean Corpuscular Volume 91.9 fL (80.0-100.0); Monocytes # (auto) 0.4 uL; Monocytes % (auto) 5.2 % (0.0-12.0); Neutrophils # (auto) 7.7 uL; Neutrophils % (auto) 90.3 % (37.0-80.0); Platelet Count (auto) 125 10^3/uL (140-450); Red Blood Cells 4.07 10^6/uL (4.5-5.90); Red Cell Distribution Width 14.9 % (11.8-14.3); White Blood Cell 8.5 10^3/uL (4.4-10.8)
[2017-07-13] MEDS: PRO-STAT 64 30ML PO SCH ×2 (08:00→18:00)
[2017-07-13 08:03] LABS: Albumin 2.5 g/dL (3.4-5.0); BUN/Creatinine Ratio 43.2; Bilirubin, Total 0.6 mg/dL (0.2-1.0); Calcium 7.7 mg/dL (8.5-10.1); Potassium 3.5 mmol/L (3.5-5.1); Total Protein 5.1 g/dL (6.4-8.2)
[2017-07-13] MEDS ORDERED: LORazepam 2MG/ML-1ML VIAL IV PRN (09:00)
[2017-07-13 09:09] VITALS: BP 143/81
[2017-07-13] MEDS: PANTOPRAZOLE 40 MG/10 ML VIAL IV SCH (09:36)
[2017-07-13] MEDS: POTASSIUM CHL 10% (20 MEQ/15ML) 15ml ORAL SOLN GT SCH (09:37)
[2017-07-13] MEDS: MAGNESIUM OXIDE 400 MG TAB PO SCH ×2 (09:38→21:45)
[2017-07-13] MEDS: CARVEDILOL 3.125 MG TAB NG SCH ×2 (09:38→21:45)
[2017-07-13] MEDS: ENOXAPARIN SOD 40 MG/0.4 ML SYRINGE SC SCH (09:39)
[2017-07-13] MEDS: LISINOPRIL 5 MG TAB PO SCH (09:39)
[2017-07-13] MEDS: BUDESONIDE (INHALATION) 0.5 MG/2 ML NEB NEB SCH ×2 (10:11→20:24)
[2017-07-13] MEDS: cloNIDine HCL 0.1 MG TAB PO PRN (12:39)
[2017-07-13 13:00] VITALS: BP 157/88
[2017-07-13 17:38] VITALS: BP 162/81
[2017-07-13 21:37] VITALS: BP 126/102
[2017-07-13] MEDS: ALPRAZolam 0.5 MG TAB NG PRN (21:45)
[2017-07-14] MEDS: methylPREDNISolone SOD SUCC 40 MG/ML VL IV SCH ×4 (00:32→17:49)
[2017-07-14] MEDS: ACCU-CHEK COMFORT CURVE STRIP VI SCH ×5 (00:32→21:34)
[2017-07-14] MEDS: InsuLIN REG 1unit/0.01ml Soln (100units/ml) SC SCH ×5 (00:40→21:43)
[2017-07-14 05:26] VITALS: BP 165/93
[2017-07-14] MEDS: IPRATROPIUM BROM 0.5 MG/2.5ML INH SOL NEB SCH ×3 (06:59→19:37)
[2017-07-14] MEDS: ALBUTEROL SULF 2.5 MG/0.5ML(0.5%) NEB SOLN NEB SCH ×3 (06:59→19:37)
[2017-07-14] MEDS: BUDESONIDE (INHALATION) 0.5 MG/2 ML NEB NEB SCH ×2 (06:59→19:37)
[2017-07-14] MEDS: PRO-STAT 64 30ML PO SCH ×3 (08:00→21:43)
[2017-07-14 09:00] VITALS: BP 172/91
[2017-07-14] MEDS: D5W/SOD CHLO 0.9% 1,000 ML IV SCH ×2 (09:22→21:25)
[2017-07-14] MEDS: hydrALAZINE HCL 20 MG/ML VL IV PRN (09:23)
[2017-07-14] MEDS: CARVEDILOL 3.125 MG TAB NG SCH ×2 (10:00→21:34)
[2017-07-14] MEDS: MAGNESIUM OXIDE 400 MG TAB PO SCH ×2 (12:00→21:34)
[2017-07-14] MEDS: LEVOFLOXACIN 500 MG TAB PO SCH (12:01)
[2017-07-14] MEDS: LISINOPRIL 5 MG TAB PO SCH (12:02)
[2017-07-14] MEDS: POTASSIUM CHL 10% (20 MEQ/15ML) 15ml ORAL SOLN GT SCH (12:03)
[2017-07-14 13:00] VITALS: BP 130/85
[2017-07-14 17:00] VITALS: BP 122/83
[2017-07-14 22:02] VITALS: BP 160/89
[2017-07-15 05:00] VITALS: BP 136/90
[2017-07-15] MEDS: InsuLIN REG 1unit/0.01ml Soln (100units/ml) SC SCH ×3 (06:00→18:00)
[2017-07-15] MEDS: methylPREDNISolone SOD SUCC 40 MG/ML VL IV SCH ×4 (06:28→18:00)
[2017-07-15] MEDS: ACCU-CHEK COMFORT CURVE STRIP VI SCH ×3 (06:28→18:00)
[2017-07-15] MEDS: BUDESONIDE (INHALATION) 0.5 MG/2 ML NEB NEB SCH ×2 (06:40→18:49)
[2017-07-15] MEDS: ALBUTEROL SULF 2.5 MG/0.5ML(0.5%) NEB SOLN NEB SCH ×4 (06:40→18:49)
[2017-07-15] MEDS: IPRATROPIUM BROM 0.5 MG/2.5ML INH SOL NEB SCH ×4 (06:40→18:49)
[2017-07-15 07:46] LABS: Basophils # (auto) 0 uL; Basophils % (auto) 0.2 % (0.0-2.0); Eosinophils # (auto) 0 uL; Hematocrit 34.5 % (41.0-53.0); Hemoglobin 11.4 g/dL (13.5-17.5); Lymphocytes # (auto) 0.2 uL; Lymphocytes % (auto) 2.3 % (10.0-50.0); Mean Corpuscular Hemoglobin 30.2 pg (28.0-32.0); Mean Corpuscular Hgb Conc. 33.1 g/dL (32.0-36.0); Mean Corpuscular Volume 91.3 fL (80.0-100.0); Monocytes # (auto) 0.3 uL; Monocytes % (auto) 3.2 % (0.0-12.0); Neutrophils # (auto) 9.4 uL; Neutrophils % (auto) 94.3 % (37.0-80.0); Platelet Count (auto) 138 10^3/uL (140-450); Red Blood Cells 3.77 10^6/uL (4.5-5.90); Red Cell Distribution Width 14.8 % (11.8-14.3)
[2017-07-15 07:53] LABS: BUN/Creatinine Ratio 53.1; Calcium 7.8 mg/dL (8.5-10.1); Potassium 3.5 mmol/L (3.5-5.1)
[2017-07-15] MEDS: hydrALAZINE HCL 20 MG/ML VL IV PRN ×2 (08:59→15:28)
[2017-07-15 09:00] VITALS: BP 168/96
[2017-07-15] MEDS ORDERED: IOHEXOL 350 MG/ML 100ML IJ ONE ×3 (09:57→12:28)
[2017-07-15] MEDS ORDERED: LIDOCAINE 2%HCL (LOCAL ANESTH.) INJ 20ML MDV ONE (09:57)
[2017-07-15] MEDS ORDERED: diphenhdrAMINE HCL 50 MG/1 ML VL IV ONE (10:00)
[2017-07-15] MEDS: POTASSIUM CHL 10% (20 MEQ/15ML) 15ml ORAL SOLN GT SCH (10:00)
[2017-07-15] MEDS: MAGNESIUM OXIDE 400 MG TAB PO SCH ×2 (10:00→22:00)
[2017-07-15] MEDS: LEVOFLOXACIN 500 MG TAB PO SCH (10:00)
[2017-07-15] MEDS ORDERED: ANGIOMAX 250 MG VIAL IV ONE ×3 (10:05→12:42)
[2017-07-15] MEDS ORDERED: SODIUM CHL 0.9% 50 ML ONE ×3 (10:06→12:43)
[2017-07-15] MEDS ORDERED: fentaNYL CITRATE 100 MCG/2 ML VL ONE ×2 (10:28→13:27)
[2017-07-15 10:40] VITALS: BP 168/96
[2017-07-15] MEDS ORDERED: VERAPAMIL 2.5MG/ML INJ 2ML VIAL IV ONE (10:47)
[2017-07-15] MEDS ORDERED: diphenhdrAMINE HCL 50 MG/1 ML VL ONE (11:35)
[2017-07-15] MEDS ORDERED: IODIXANOL 320MG/ML 100ML BTL IV ONE (12:28)
[2017-07-15] MEDS ORDERED: CLOPIDOGREL 300 MG TAB ONE (14:01)
[2017-07-15] MEDS: PRO-STAT 64 30ML PO SCH (18:00)
[2017-07-15 19:22] LABS: Basophils # (auto) 0 uL; Basophils % (auto) 0.1 % (0.0-2.0); Eosinophils # (auto) 0 uL; Hematocrit 29.4 % (41.0-53.0); Hemoglobin 9.6 g/dL (13.5-17.5); Lymphocytes # (auto) 0.7 uL; Lymphocytes % (auto) 3.5 % (10.0-50.0); Mean Corpuscular Hemoglobin 29.8 pg (28.0-32.0); Mean Corpuscular Hgb Conc. 32.6 g/dL (32.0-36.0); Mean Corpuscular Volume 91.4 fL (80.0-100.0); Monocytes # (auto) 1.7 uL; Monocytes % (auto) 8.5 % (0.0-12.0); Neutrophils # (auto) 17.5 uL; Neutrophils % (auto) 87.9 % (37.0-80.0); Platelet Count (auto) 126 10^3/uL (140-450); Red Blood Cells 3.22 10^6/uL (4.5-5.90); Red Cell Distribution Width 15.1 % (11.8-14.3); White Blood Cell 19.9 10^3/uL (4.4-10.8)
[2017-07-15 19:33] LABS: INR 2.21 (0.9-1.15); Partial Thromboplastin Time 63.4 sec (22.64-33.71); Prothrombin Time 24.3 sec (9.37-12.3)
[2017-07-15 19:35] LABS: Potassium 3.7 mmol/L (3.5-5.1)
[2017-07-15 19:37] LABS: BUN/Creatinine Ratio 48.6
[2017-07-15 20:00] VITALS: BP 86/62
[2017-07-16] VITALS (22 sets, daily range): BP systolic 60–140; BP diastolic 30–98
[2017-07-16] MEDS: methylPREDNISolone SOD SUCC 40 MG/ML VL IV SCH ×4 (06:00→18:31)
[2017-07-16] MEDS: ACCU-CHEK COMFORT CURVE STRIP VI SCH ×4 (06:02→18:00)
[2017-07-16] MEDS: InsuLIN REG 1unit/0.01ml Soln (100units/ml) SC SCH ×4 (06:02→18:32)
[2017-07-16 07:05] LABS: Basophils # (auto) 0 uL; Eosinophils # (auto) 0 uL; Lymphocytes # (auto) 0.3 uL; Monocytes # (auto) 0.5 uL; Neutrophils # (auto) 12.4 uL; Platelet Count (auto) 106 10^3/uL (140-450); White Blood Cell 13.2 10^3/uL (4.4-10.8)
[2017-07-16 07:08] LABS: Hematocrit 23.9 % (41.0-53.0); Hemoglobin 7.8 g/dL (13.5-17.5); Lymphocytes % (auto) 2.2 % (10.0-50.0); Mean Corpuscular Hemoglobin 29.8 pg (28.0-32.0); Mean Corpuscular Hgb Conc. 32.5 g/dL (32.0-36.0); Mean Corpuscular Volume 91.8 fL (80.0-100.0); Monocytes % (auto) 3.8 % (0.0-12.0); Red Blood Cells 2.61 10^6/uL (4.5-5.90); Red Cell Distribution Width 15.3 % (11.8-14.3)
[2017-07-16] MEDS: ALBUTEROL SULF 2.5 MG/0.5ML(0.5%) NEB SOLN NEB SCH ×4 (07:19→18:41)
[2017-07-16] MEDS: IPRATROPIUM BROM 0.5 MG/2.5ML INH SOL NEB SCH ×4 (07:19→18:41)
[2017-07-16] MEDS: BUDESONIDE (INHALATION) 0.5 MG/2 ML NEB NEB SCH ×2 (07:19→18:41)
[2017-07-16 07:20] LABS: Calcium 7.8 mg/dL (8.5-10.1)
[2017-07-16 07:25] LABS: BUN/Creatinine Ratio 40.6
[2017-07-16 07:27] LABS: Bilirubin, Total 0.7 mg/dL (0.2-1.0); Total Protein 3.8 g/dL (6.4-8.2)
[2017-07-16] MEDS: PRO-STAT 64 30ML PO SCH ×2 (08:55→18:32)
[2017-07-16] MEDS: LEVOFLOXACIN 500 MG TAB PO SCH (10:27)
[2017-07-16] MEDS: MAGNESIUM OXIDE 400 MG TAB PO SCH ×2 (10:28→22:32)
[2017-07-16] MEDS: CLOPIDOGREL BISULFATE 75 MG TAB PO SCH (10:28)
[2017-07-16] MEDS: POTASSIUM CHL 10% (20 MEQ/15ML) 15ml ORAL SOLN GT SCH (10:29)
[2017-07-16 17:13] LABS: Hemoglobin 6.7 g/dL (13.5-17.5)
[2017-07-16] MEDS ORDERED: SODIUM CHLORIDE 0.9% 1,000 ML IV ONE (19:15)
[2017-07-16] MEDS: NOREPINEPHRINE 8 MG/250ML KIT 250 ML IV SCH (19:15)
[2017-07-17] VITALS (11 sets, daily range): BP systolic 101–130; BP diastolic 62–81
[2017-07-17] MEDS: ACCU-CHEK COMFORT CURVE STRIP VI SCH ×4 (00:24→18:28)
[2017-07-17] MEDS: methylPREDNISolone SOD SUCC 40 MG/ML VL IV SCH ×4 (00:24→18:27)
[2017-07-17] MEDS: InsuLIN REG 1unit/0.01ml Soln (100units/ml) SC SCH ×4 (00:24→18:28)
[2017-07-17 05:28] LABS: Basophils # (auto) 0 uL; Basophils % (auto) 0.1 % (0.0-2.0); Eosinophils # (auto) 0 uL; Hematocrit 27.5 % (41.0-53.0); Lymphocytes # (auto) 0.3 uL; Lymphocytes % (auto) 1.6 % (10.0-50.0); Mean Corpuscular Hemoglobin 29.7 pg (28.0-32.0); Mean Corpuscular Hgb Conc. 32.7 g/dL (32.0-36.0); Mean Corpuscular Volume 90.9 fL (80.0-100.0); Monocytes # (auto) 0.8 uL; Monocytes % (auto) 4.2 % (0.0-12.0); Neutrophils # (auto) 17.9 uL; Neutrophils % (auto) 94.1 % (37.0-80.0); Platelet Count (auto) 92 10^3/uL (140-450); Red Blood Cells 3.02 10^6/uL (4.5-5.90); Red Cell Distribution Width 14.8 % (11.8-14.3)
[2017-07-17] MEDS: LACTULOSE 20Gm/30ML SOLN PO PRN ×2 (05:44→22:39)
[2017-07-17] MEDS: ALBUTEROL SULF 2.5 MG/0.5ML(0.5%) NEB SOLN NEB SCH ×4 (06:10→18:43)
[2017-07-17] MEDS: IPRATROPIUM BROM 0.5 MG/2.5ML INH SOL NEB SCH ×4 (06:10→18:43)
[2017-07-17] MEDS: PRO-STAT 64 30ML PO SCH ×2 (10:03→18:28)
[2017-07-17] MEDS: LEVOFLOXACIN 500 MG TAB PO SCH (10:04)
[2017-07-17] MEDS: POTASSIUM CHL 10% (20 MEQ/15ML) 15ml ORAL SOLN GT SCH (10:04)
[2017-07-17] MEDS: MAGNESIUM OXIDE 400 MG TAB PO SCH ×2 (10:04→22:39)
[2017-07-17] MEDS: CLOPIDOGREL BISULFATE 75 MG TAB PO SCH (10:05)
[2017-07-17] MEDS: BUDESONIDE (INHALATION) 0.5 MG/2 ML NEB NEB SCH ×2 (10:11→18:43)
[2017-07-17] MEDS: NOREPINEPHRINE 8 MG/250ML KIT 250 ML IV SCH (19:15)
[2017-07-18] VITALS (8 sets, daily range): BP systolic 98–153; BP diastolic 64–98
[2017-07-18] MEDS: ACCU-CHEK COMFORT CURVE STRIP VI SCH ×2 (00:26→06:08)
[2017-07-18] MEDS: InsuLIN REG 1unit/0.01ml Soln (100units/ml) SC SCH ×2 (00:26→06:09)
[2017-07-18] MEDS: PRO-STAT 64 30ML PO SCH ×2 (08:00→18:00)
[2017-07-18] MEDS: MAGNESIUM OXIDE 400 MG TAB PO SCH ×2 (10:00→22:24)
[2017-07-18] MEDS: CLOPIDOGREL BISULFATE 75 MG TAB PO SCH (10:00)
[2017-07-18] MEDS: POTASSIUM CHL 10% (20 MEQ/15ML) 15ml ORAL SOLN GT SCH (10:00)
[2017-07-18] MEDS: LEVOFLOXACIN 500 MG TAB PO SCH (10:00)
[2017-07-18] MEDS ORDERED: LIDOCAINE 2%HCL (LOCAL ANESTH.) INJ 20ML MDV ONE (10:05)
[2017-07-18] MEDS ORDERED: IODIXANOL 320MG/ML 100ML BTL IV ONE (10:05)
[2017-07-18 10:23] LABS: Eosinophils # (auto) 0 uL; Hemoglobin 8.3 g/dL (13.5-17.5)
[2017-07-18 10:25] LABS: Basophils # (auto) 0 uL; Basophils % (auto) 0.2 % (0.0-2.0); Hematocrit 25.5 % (41.0-53.0); Lymphocytes # (auto) 0.7 uL; Lymphocytes % (auto) 3.5 % (10.0-50.0); Mean Corpuscular Hgb Conc. 32.6 g/dL (32.0-36.0); Monocytes # (auto) 1.5 uL; Monocytes % (auto) 7.3 % (0.0-12.0); Neutrophils # (auto) 18.2 uL; Nucleated Red Blood Cells % 0.1 %; Platelet Count (auto) 101 10^3/uL (140-450); Red Blood Cells 2.77 10^6/uL (4.5-5.90); Red Cell Distribution Width 15.1 % (11.8-14.3); White Blood Cell 20.4 10^3/uL (4.4-10.8)
[2017-07-18] MEDS ORDERED: MIDAZOLAM HCL 1MG/1ML-2 ML VIAL ONE (10:47)
[2017-07-18] MEDS ORDERED: fentaNYL CITRATE 100 MCG/2 ML VL ONE (10:47)
[2017-07-18] MEDS ORDERED: SODIUM CHL 0.9% 50 ML ONE ×2 (10:47→11:29)
[2017-07-18] MEDS ORDERED: ANGIOMAX 250 MG VIAL IV ONE ×2 (10:48→11:29)
[2017-07-18] MEDS: NOREPINEPHRINE 8 MG/250ML KIT 250 ML IV SCH (19:15)
[2017-07-19] VITALS (12 sets, daily range): BP systolic 94–146; BP diastolic 53–113
[2017-07-19 05:00] LABS: Basophils # (auto) 0 uL; Basophils % (auto) 0.1 % (0.0-2.0); Eosinophils # (auto) 0.1 uL; Hematocrit 23.4 % (41.0-53.0); Hemoglobin 7.7 g/dL (13.5-17.5); Mean Corpuscular Volume 92.6 fL (80.0-100.0); Red Blood Cells 2.53 10^6/uL (4.5-5.90)
[2017-07-19 05:02] LABS: Eosinophils % (auto) 0.5 % (0.0-7.0); Lymphocytes # (auto) 0.6 uL; Mean Corpuscular Hemoglobin 30.2 pg (28.0-32.0); Mean Corpuscular Hgb Conc. 32.7 g/dL (32.0-36.0); Monocytes % (auto) 7.3 % (0.0-12.0); Neutrophils # (auto) 12.7 uL; Neutrophils % (auto) 88.1 % (37.0-80.0); Platelet Count (auto) 95 10^3/uL (140-450); Red Cell Distribution Width 15.2 % (11.8-14.3); White Blood Cell 14.4 10^3/uL (4.4-10.8)
[2017-07-19 05:20] LABS: Albumin 2.2 g/dL (3.4-5.0); Calcium 8.1 mg/dL (8.5-10.1); Potassium 3.9 mmol/L (3.5-5.1)
[2017-07-19 05:22] LABS: BUN/Creatinine Ratio 46.2
[2017-07-19 05:24] LABS: Bilirubin, Total 0.5 mg/dL (0.2-1.0); Total Protein 4.1 g/dL (6.4-8.2)
[2017-07-19] MEDS: PRO-STAT 64 30ML PO SCH ×2 (08:00→18:00)
[2017-07-19] MEDS: POTASSIUM CHL 10% (20 MEQ/15ML) 15ml ORAL SOLN GT SCH (10:00)
[2017-07-19] MEDS: CLOPIDOGREL BISULFATE 75 MG TAB PO SCH (10:29)
[2017-07-19] MEDS: LEVOFLOXACIN 500 MG TAB PO SCH (10:30)
[2017-07-19] MEDS: MAGNESIUM OXIDE 400 MG TAB PO SCH ×2 (10:30→21:10)
[2017-07-19] MEDS: PANTOPRAZOLE 40 MG TAB PO SCH (12:53)
[2017-07-19] MEDS: LACTULOSE 20Gm/30ML SOLN PO PRN (21:11)
[2017-07-20] VITALS (8 sets, daily range): BP systolic 88–154; BP diastolic 56–88
[2017-07-20 06:14] LABS: Basophils # (auto) 0 uL; Basophils % (auto) 0.1 % (0.0-2.0); Eosinophils # (auto) 0.1 uL; Eosinophils % (auto) 0.6 % (0.0-7.0); Hematocrit 34.6 % (41.0-53.0); Hemoglobin 11.3 g/dL (13.5-17.5); Lymphocytes # (auto) 0.4 uL; Lymphocytes % (auto) 2.3 % (10.0-50.0); Mean Corpuscular Hemoglobin 30.5 pg (28.0-32.0); Mean Corpuscular Hgb Conc. 32.5 g/dL (32.0-36.0); Mean Corpuscular Volume 93.7 fL (80.0-100.0); Monocytes # (auto) 1.1 uL; Monocytes % (auto) 5.7 % (0.0-12.0); Neutrophils # (auto) 17.6 uL; Neutrophils % (auto) 91.3 % (37.0-80.0); Platelet Count (auto) 102 10^3/uL (140-450); Red Cell Distribution Width 15.1 % (11.8-14.3); White Blood Cell 19.3 10^3/uL (4.4-10.8)
[2017-07-20 06:27] LABS: Albumin 2.5 g/dL (3.4-5.0); Calcium 8.5 mg/dL (8.5-10.1); Potassium 4.2 mmol/L (3.5-5.1)
[2017-07-20 06:32] LABS: Bilirubin, Total 0.9 mg/dL (0.2-1.0); Total Protein 4.9 g/dL (6.4-8.2)
[2017-07-20] MEDS: PRO-STAT 64 30ML PO SCH ×2 (08:00→17:42)
[2017-07-20] MEDS ORDERED: VANCOMYCIN PER PHARMACY 0 MG IV SCH (09:15)
[2017-07-20] MEDS ORDERED: SODIUM CHLORIDE 0.9% 1,000 ML IV ONE ×2 (09:15)
[2017-07-20] MEDS ORDERED: VANCOMYCIN 1GM/250ML 250 ML IV ONE ×2 (09:15→11:00)
[2017-07-20] MEDS ORDERED: LEVOFLOXACIN 500MG 100 ML IV SCH (10:00)
[2017-07-20] MEDS ORDERED: metroNIDAZOLE 500MG/100ML 100 ML IV SCH ×2 (10:00→12:00)
[2017-07-20] MEDS: CLOPIDOGREL BISULFATE 75 MG TAB PO SCH (10:05)
[2017-07-20] MEDS: LEVOFLOXACIN 500MG 100 ML IV SCH (10:05)
[2017-07-20] MEDS: MAGNESIUM OXIDE 400 MG TAB PO SCH ×2 (10:06→21:06)
[2017-07-20] MEDS: PANTOPRAZOLE 40 MG TAB PO SCH (10:06)
[2017-07-20] MEDS: POTASSIUM CHL 10% (20 MEQ/15ML) 15ml ORAL SOLN GT SCH (10:06)
[2017-07-20] MEDS: metroNIDAZOLE 500MG/100ML 100 ML IV SCH ×3 (12:27→23:04)
[2017-07-20] MEDS: LACTULOSE 20Gm/30ML SOLN PO PRN (17:56)
[2017-07-20] MEDS: VANCOMYCIN 1GM/250ML 250 ML IV SCH (23:04)
[2017-07-21] VITALS (68 sets, daily range): BP systolic 41–144; BP diastolic 19–77
[2017-07-21] MEDS ORDERED: FUROSEMIDE 20 MG/2 ML VIAL ONE (00:55)
[2017-07-21] MEDS ORDERED: FUROSEMIDE 20 MG/2 ML VIAL IV ONE ×3 (01:00→09:15)
[2017-07-21 03:04] LABS: Urine Bacteria NONE SEEN /hpf (None Seen); Urine Blood TRACE /uL (Negative); Urine Mucus FEW (None Seen); Urine Specific Gravity 1.041 (1.001-1.035); Urine WBC 6 /hpf (0 - 3)
[2017-07-21 05:34] LABS: Basophils # (auto) 0.3 uL; Basophils % (auto) 1.2 % (0.0-2.0); Eosinophils # (auto) 0.1 uL; Eosinophils % (auto) 0.3 % (0.0-7.0); Hemoglobin 10.6 g/dL (13.5-17.5); Lymphocytes # (auto) 0.4 uL; Lymphocytes % (auto) 1.8 % (10.0-50.0); Mean Corpuscular Hemoglobin 30.6 pg (28.0-32.0); Mean Corpuscular Hgb Conc. 32.2 g/dL (32.0-36.0); Mean Corpuscular Volume 94.9 fL (80.0-100.0); Monocytes % (auto) 4.7 % (0.0-12.0); Neutrophils # (auto) 19.2 uL; Platelet Count (auto) 125 10^3/uL (140-450); Red Blood Cells 3.48 10^6/uL (4.5-5.90); Red Cell Distribution Width 15.2 % (11.8-14.3); White Blood Cell 20.9 10^3/uL (4.4-10.8)
[2017-07-21] MEDS: metroNIDAZOLE 500MG/100ML 100 ML IV SCH ×3 (05:42→17:47)
[2017-07-21 05:46] LABS: INR 1.04 (0.9-1.15); Partial Thromboplastin Time 26.8 sec (22.64-33.71); Prothrombin Time 11.3 sec (9.37-12.3)
[2017-07-21] MEDS ORDERED: FUROSEMIDE 40 MG/4 ML VIAL ONE (05:59)
[2017-07-21 06:19] LABS: Potassium 4.1 mmol/L (3.5-5.1)
[2017-07-21 06:23] LABS: Albumin 2.3 g/dL (3.4-5.0); BUN/Creatinine Ratio 27.7; Calcium 8.1 mg/dL (8.5-10.1)
[2017-07-21 06:32] LABS: Bilirubin, Total 0.9 mg/dL (0.2-1.0); Total Protein 4.8 g/dL (6.4-8.2)
[2017-07-21] MEDS ORDERED: IOHEXOL 350 MG/ML 100ML IJ ONE (08:02)
[2017-07-21] MEDS ORDERED: LIDOCAINE 2%HCL (LOCAL ANESTH.) INJ 20ML MDV ONE (08:02)
[2017-07-21] MEDS: VANCOMYCIN 1GM/250ML 250 ML IV SCH ×2 (09:02→22:00)
[2017-07-21] MEDS: PRO-STAT 64 30ML PO SCH ×2 (09:35→17:46)
[2017-07-21] MEDS: CLOPIDOGREL BISULFATE 75 MG TAB PO SCH (09:49)
[2017-07-21] MEDS: MAGNESIUM OXIDE 400 MG TAB PO SCH ×2 (09:49→21:23)
[2017-07-21] MEDS: PANTOPRAZOLE 40 MG TAB PO SCH (09:49)
[2017-07-21] MEDS: LEVOFLOXACIN 500MG 100 ML IV SCH (09:49)
[2017-07-21] MEDS: POTASSIUM CHL 10% (20 MEQ/15ML) 15ml ORAL SOLN GT SCH (09:50)
[2017-07-21] MEDS ORDERED: EPINEPHrine HCL 1 MG/10 ML SYRG ONE (10:32)
[2017-07-21] MEDS ORDERED: SODIUM BICARBONATE 8.4% INJ 50ML SYRINGE ONE (10:45)
[2017-07-21] MEDS ORDERED: PHENYLEPHRINE IV 250 ML IV ONE (10:46)
[2017-07-21] MEDS ORDERED: PHENYLEPHRINE INJ 20 MG in SODIUM CHL 0.9% 250 ML IV SCH (10:52)
[2017-07-21] MEDS: CLINDAMYCIN 600MG IV 50 ML IV SCH ×3 (11:00→21:22)
[2017-07-21] MEDS ORDERED: SODIUM BICARBONATE 8.4 % INJ 50ML VIAL IV ONE (11:00)
[2017-07-21] MEDS ORDERED: NOREPINEPHRINE 8 MG/250ML KIT 250 ML IV ONE (12:10)
[2017-07-21] MEDS: NOREPINEPHRINE 8 MG/250ML KIT 250 ML IV SCH ×2 (12:25→22:00)
[2017-07-21] MEDS ORDERED: VASOPRESSIN 20 UNIT/ML ONE (13:00)
[2017-07-21] MEDS: VASOPRESSIN 50 UNITS in D5W 5% 247.5 ML IV SCH (13:28)
[2017-07-21] MEDS ORDERED: PHENYLEPHRINE INJ 20 MG in D5W 5% 250 ML IV SCH (14:00)
[2017-07-21] MEDS ORDERED: ALBUMIN 25% 100 ML IV ONE (14:15)
[2017-07-21] MEDS: SOD CHL 0.45% 1,000 ML IV SCH (14:27)
[2017-07-21] MEDS ORDERED: SODIUM CHLORIDE 0.9% 1,000 ML IV ONE (14:30)
[2017-07-21] MEDS ORDERED: PHENYLEPHRINE INJ 40 MG in SODIUM CHL 0.9% 250 ML IV SCH ×2 (14:30→14:45)
[2017-07-21 15:15] LABS: Urine Bacteria FEW /hpf (None Seen); Urine Blood 2+ /uL (Negative); Urine Mucus FEW (None Seen); Urine Specific Gravity 1.027 (1.001-1.035); Urine WBC 19 /hpf (0 - 3)
[2017-07-21] MEDS ORDERED: EPINEPHrine HCL 1 MG/10 ML SYRG IV ONE (15:27)
[2017-07-21] MEDS ORDERED: AMIODARONE HCL (50 MG/ ML) 3 ML VIAL IV ONE (15:27)
[2017-07-21] MEDS ORDERED: CALCIUM CHLOR(10%) 100MG/ML 10ML SYRINGE IV ONE (15:27)
[2017-07-21] MEDS ORDERED: SODIUM BICARBONATE 8.4% INJ 50ML SYRINGE IV ONE (15:27)
[2017-07-21] MEDS ORDERED: MAGNESIUM SULF 50% 40 MEQ/10 ML VL IV ONE (15:27)
[2017-07-21] MEDS: PHENYLEPHRINE INJ 40 MG in D5W 5% 250 ML IV SCH ×3 (16:00→23:37)
[2017-07-21] MEDS: MIDAZOLAM DRIP 50 mg/50mL 50 ML IV SCH ×3 (16:07→23:37)
[2017-07-21 21:04] LABS: Basophils # (auto) 0.2 uL; Basophils % (auto) 1.6 % (0.0-2.0); Eosinophils # (auto) 0 uL; Eosinophils % (auto) 0.2 % (0.0-7.0); Hematocrit 31.6 % (41.0-53.0); Hemoglobin 10.5 g/dL (13.5-17.5); Lymphocytes # (auto) 0.3 uL; Lymphocytes % (auto) 2.1 % (10.0-50.0); Mean Corpuscular Hemoglobin 31.1 pg (28.0-32.0); Mean Corpuscular Hgb Conc. 33.3 g/dL (32.0-36.0); Mean Corpuscular Volume 93.5 fL (80.0-100.0); Monocytes # (auto) 0.6 uL; Monocytes % (auto) 4.6 % (0.0-12.0); Neutrophils # (auto) 11.4 uL; Neutrophils % (auto) 91.5 % (37.0-80.0); Platelet Count (auto) 76 10^3/uL (140-450); Red Blood Cells 3.38 10^6/uL (4.5-5.90); Red Cell Distribution Width 15.3 % (11.8-14.3); White Blood Cell 12.4 10^3/uL (4.4-10.8)
[2017-07-21 21:11] LABS: BUN/Creatinine Ratio 21.6; Calcium 7.7 mg/dL (8.5-10.1); Magnesium 2.9 mg/dL (1.6-2.6); Potassium 4.3 mmol/L (3.5-5.1)
[2017-07-22] VITALS (105 sets, daily range): BP systolic 83–143; BP diastolic 35–89
[2017-07-22] MEDS: SOD CHL 0.45% 1,000 ML IV SCH ×2 (00:15→10:15)
[2017-07-22] MEDS: metroNIDAZOLE 500MG/100ML 100 ML IV SCH ×2 (00:22→04:55)
[2017-07-22] MEDS: NOREPINEPHRINE 8 MG/250ML KIT 250 ML IV SCH ×3 (02:41→20:41)
[2017-07-22] MEDS: PHENYLEPHRINE INJ 40 MG in D5W 5% 250 ML IV SCH ×3 (03:30→18:18)
[2017-07-22] MEDS: MIDAZOLAM DRIP 50 mg/50mL 50 ML IV SCH ×5 (03:43→21:55)
[2017-07-22] MEDS: CLINDAMYCIN 600MG IV 50 ML IV SCH ×3 (05:50→21:54)
[2017-07-22] MEDS: PRO-STAT 64 30ML PO SCH ×2 (08:00→17:34)
[2017-07-22 09:26] LABS: Basophils # (auto) 0 uL; Eosinophils # (auto) 0 uL; Mean Corpuscular Volume 94.3 fL (80.0-100.0)
[2017-07-22 09:28] LABS: Basophils % (auto) 0.2 % (0.0-2.0); Eosinophils % (auto) 0.2 % (0.0-7.0); Hematocrit 31.1 % (41.0-53.0); Hemoglobin 10.1 g/dL (13.5-17.5); Lymphocytes # (auto) 0.3 uL; Lymphocytes % (auto) 2.2 % (10.0-50.0); Mean Corpuscular Hemoglobin 30.6 pg (28.0-32.0); Mean Corpuscular Hgb Conc. 32.4 g/dL (32.0-36.0); Monocytes # (auto) 0.6 uL; Monocytes % (auto) 4.1 % (0.0-12.0); Neutrophils # (auto) 14.5 uL; Neutrophils % (auto) 93.3 % (37.0-80.0); Platelet Count (auto) 59 10^3/uL (140-450); Red Cell Distribution Width 15.6 % (11.8-14.3); White Blood Cell 15.5 10^3/uL (4.4-10.8)
[2017-07-22 09:36] LABS: Albumin 1.9 g/dL (3.4-5.0); BUN/Creatinine Ratio 19.9; Calcium 7.4 mg/dL (8.5-10.1); Potassium 4.1 mmol/L (3.5-5.1)
[2017-07-22 09:39] LABS: Bilirubin, Total 0.8 mg/dL (0.2-1.0); Total Protein 4.2 g/dL (6.4-8.2)
[2017-07-22] MEDS ORDERED: ALBUMIN 25% 100 ML IV ONE (09:45)
[2017-07-22] MEDS: DOPamine 1600MCG/ML D5W 250 ML IV SCH (10:00)
[2017-07-22] MEDS: PANTOPRAZOLE 40 MG TAB PO SCH (10:01)
[2017-07-22] MEDS: POTASSIUM CHL 10% (20 MEQ/15ML) 15ml ORAL SOLN GT SCH (10:01)
[2017-07-22] MEDS: CLOPIDOGREL BISULFATE 75 MG TAB PO SCH (10:02)
[2017-07-22] MEDS: SODIUM BICARBONATE 50ML VIAL 50 ML in D5W 5% 1,000 ML IV SCH ×2 (10:26→21:50)
[2017-07-22] MEDS: FUROSEMIDE 100 MG/10ML VIAL IV SCH (11:45)
[2017-07-22] MEDS: VASOPRESSIN 50 UNITS in D5W 5% 247.5 ML IV SCH (11:46)
[2017-07-22] MEDS ORDERED: CALCIUM CHLOR(10%) 100MG/ML 10ML SYRINGE IV ONE (13:43)
[2017-07-22] MEDS ORDERED: SODIUM BICARBONATE 8.4% INJ 50ML SYRINGE IV ONE (13:43)
[2017-07-22] MEDS ORDERED: EPINEPHrine HCL 1 MG/10 ML SYRG IV ONE (13:43)
[2017-07-22 14:44] LABS: Creatinine, Urine 135 mg/dL (30.0-125.0); Sodium Urine 61 mmol/L (40-220)
[2017-07-22] MEDS ORDERED: ENOXAPARIN SOD 60 MG/0.6 ML SYRINGE SC SCH (22:00)
[2017-07-23] VITALS (95 sets, daily range): BP systolic 70–128; BP diastolic 36–79
[2017-07-23] MEDS: MIDAZOLAM DRIP 50 mg/50mL 50 ML IV SCH ×2 (02:00→09:33)
[2017-07-23] MEDS ORDERED: PHENYLEPHRINE HCL 10 MG/ML VL ONE ×2 (03:31→22:27)
[2017-07-23] MEDS ORDERED: PHENYLEPHRINE IV 250 ML IV ONE ×2 (03:32→22:22)
[2017-07-23 04:34] LABS: Lymphocytes # (auto) 0.3 uL; Lymphocytes % (auto) 2.4 % (10.0-50.0); Monocytes # (auto) 0.4 uL; Nucleated Red Blood Cells % 0.2 %; White Blood Cell 11.6 10^3/uL (4.4-10.8)
[2017-07-23 04:38] LABS: Basophils # (auto) 0 uL; Basophils % (auto) 0.1 % (0.0-2.0); Eosinophils # (auto) 0 uL; Eosinophils % (auto) 0.4 % (0.0-7.0); Hematocrit 25.9 % (41.0-53.0); Hemoglobin 8.7 g/dL (13.5-17.5); Mean Corpuscular Hemoglobin 31.2 pg (28.0-32.0); Mean Corpuscular Hgb Conc. 33.5 g/dL (32.0-36.0); Mean Corpuscular Volume 93.4 fL (80.0-100.0); Monocytes % (auto) 3.7 % (0.0-12.0); Neutrophils # (auto) 10.9 uL; Neutrophils % (auto) 93.4 % (37.0-80.0); Platelet Count (auto) 33 10^3/uL (140-450); Red Blood Cells 2.77 10^6/uL (4.5-5.90); Red Cell Distribution Width 15.5 % (11.8-14.3)
[2017-07-23 05:11] LABS: Albumin 1.8 g/dL (3.4-5.0); BUN/Creatinine Ratio 21.1; Calcium 6.4 mg/dL (8.5-10.1); Potassium 3.5 mmol/L (3.5-5.1)
[2017-07-23 05:14] LABS: Bilirubin, Total 0.7 mg/dL (0.2-1.0); Total Protein 3.7 g/dL (6.4-8.2)
[2017-07-23] MEDS: CLINDAMYCIN 600MG IV 50 ML IV SCH ×3 (05:44→22:00)
[2017-07-23] MEDS: NOREPINEPHRINE 8 MG/250ML KIT 250 ML IV SCH (05:45)
[2017-07-23] MEDS: PHENYLEPHRINE INJ 40 MG in D5W 5% 250 ML IV SCH (05:45)
[2017-07-23] MEDS: PRO-STAT 64 30ML PO SCH ×2 (08:00→16:59)
[2017-07-23] MEDS: FUROSEMIDE 100 MG/10ML VIAL IV SCH (09:32)
[2017-07-23] MEDS: CLOPIDOGREL BISULFATE 75 MG TAB PO SCH (09:33)
[2017-07-23] MEDS: PANTOPRAZOLE 40 MG TAB PO SCH (09:34)
[2017-07-23] MEDS: POTASSIUM CHL 10% (20 MEQ/15ML) 15ml ORAL SOLN GT SCH (09:34)
[2017-07-23] MEDS: DOPamine 1600MCG/ML D5W 250 ML IV SCH (12:30)
[2017-07-23] MEDS: VASOPRESSIN 50 UNITS in D5W 5% 247.5 ML IV SCH (13:00)
[2017-07-24] VITALS (89 sets, daily range): BP systolic 67–125; BP diastolic 41–82
[2017-07-24] MEDS: MIDAZOLAM DRIP 50 mg/50mL 50 ML IV SCH (01:48)
[2017-07-24] MEDS: NOREPINEPHRINE 8 MG/250ML KIT 250 ML IV SCH ×3 (03:13→19:48)
[2017-07-24 04:50] LABS: Hemoglobin 9.1 g/dL (13.5-17.5)
[2017-07-24 04:53] LABS: Hematocrit 27.5 % (41.0-53.0); Mean Corpuscular Hemoglobin 30.9 pg (28.0-32.0); Mean Corpuscular Hgb Conc. 33.1 g/dL (32.0-36.0); Mean Corpuscular Volume 93.3 fL (80.0-100.0); Platelet Count (auto) 34 10^3/uL (140-450); Red Blood Cells 2.95 10^6/uL (4.5-5.90); White Blood Cell 13.9 10^3/uL (4.4-10.8)
[2017-07-24 05:05] LABS: Albumin 1.6 g/dL (3.4-5.0); BUN/Creatinine Ratio 19.2; Calcium 6.6 mg/dL (8.5-10.1); Potassium 4.1 mmol/L (3.5-5.1)
[2017-07-24 05:07] LABS: Bilirubin, Total 0.7 mg/dL (0.2-1.0); Total Protein 3.9 g/dL (6.4-8.2)
[2017-07-24 05:17] LABS: Band Neutrophils % (manual) 0; Basophils % (manual) 0 (0.0-2.0); Blast Cells 0; Metamyelocytes % 0; Myelocytes % 0; Promyelocytes % 0; Reactive Lymphocytes 0
[2017-07-24] MEDS: CLINDAMYCIN 600MG IV 50 ML IV SCH ×3 (06:00→22:00)
[2017-07-24] MEDS ORDERED: PHENYLEPHRINE IV 250 ML IV ONE ×2 (06:40→20:43)
[2017-07-24] MEDS ORDERED: PHENYLEPHRINE HCL 10 MG/ML VL ONE ×2 (06:41→20:43)
[2017-07-24 07:15] LABS: Eosinophils % (manual) 1 (0-7); Lymphocytes % (manual) 4 (10.0-50.0); Monocytes % (manual) 3 (0-12)
[2017-07-24] MEDS: PRO-STAT 64 30ML PO SCH ×2 (08:00→18:00)
[2017-07-24] MEDS: CLOPIDOGREL BISULFATE 75 MG TAB PO SCH (10:55)
[2017-07-24] MEDS: POTASSIUM CHL 10% (20 MEQ/15ML) 15ml ORAL SOLN GT SCH (10:55)
[2017-07-24] MEDS: PANTOPRAZOLE 40 MG/10 ML VIAL IV SCH (10:55)
[2017-07-24] MEDS: FUROSEMIDE 100 MG/10ML VIAL IV SCH ×2 (10:55→18:00)
[2017-07-24] MEDS: VASOPRESSIN 50 UNITS in D5W 5% 247.5 ML IV SCH (13:00)
[2017-07-24] MEDS: PHENYLEPHRINE INJ 40 MG in D5W 5% 250 ML IV SCH (14:30)
[2017-07-24] MEDS: DOPamine 1600MCG/ML D5W 250 ML IV SCH (18:30)
[2017-07-25] VITALS (102 sets, daily range): BP systolic 57–151; BP diastolic 39–89
[2017-07-25] MEDS: PHENYLEPHRINE INJ 40 MG in D5W 5% 250 ML IV SCH ×2 (03:20→17:58)
[2017-07-25 03:57] LABS: Basophils # (auto) 0 uL; Basophils % (auto) 0.1 % (0.0-2.0); Eosinophils # (auto) 0.1 uL; Red Cell Distribution Width 15.5 % (11.8-14.3)
[2017-07-25 04:00] LABS: Eosinophils % (auto) 0.5 % (0.0-7.0); Hematocrit 27.8 % (41.0-53.0); Hemoglobin 9.5 g/dL (13.5-17.5); Lymphocytes # (auto) 0.3 uL; Lymphocytes % (auto) 2.4 % (10.0-50.0); Mean Corpuscular Hemoglobin 31.1 pg (28.0-32.0); Mean Corpuscular Volume 91.5 fL (80.0-100.0); Monocytes # (auto) 0.6 uL; Monocytes % (auto) 4.4 % (0.0-12.0); Neutrophils # (auto) 11.5 uL; Neutrophils % (auto) 92.6 % (37.0-80.0); Nucleated Red Blood Cells % 1.2 %; Platelet Count (auto) 37 10^3/uL (140-450); Red Blood Cells 3.04 10^6/uL (4.5-5.90); White Blood Cell 12.4 10^3/uL (4.4-10.8)
[2017-07-25 04:15] LABS: Albumin 1.5 g/dL (3.4-5.0); BUN/Creatinine Ratio 20.9; Calcium 6.8 mg/dL (8.5-10.1)
[2017-07-25 04:17] LABS: Bilirubin, Total 0.7 mg/dL (0.2-1.0)
[2017-07-25] MEDS ORDERED: PHENYLEPHRINE HCL 10 MG/ML VL ONE (04:23)
[2017-07-25] MEDS ORDERED: PHENYLEPHRINE IV 250 ML IV ONE (04:23)
[2017-07-25] MEDS: NOREPINEPHRINE 8 MG/250ML KIT 250 ML IV SCH ×3 (05:19→17:08)
[2017-07-25] MEDS: FUROSEMIDE 100 MG/10ML VIAL IV SCH ×2 (06:00→17:53)
[2017-07-25] MEDS: CLINDAMYCIN 600MG IV 50 ML IV SCH ×3 (06:00→21:27)
[2017-07-25] MEDS: PRO-STAT 64 30ML PO SCH ×2 (08:00→17:50)
[2017-07-25] MEDS: DOPamine 1600MCG/ML D5W 250 ML IV SCH (09:45)
[2017-07-25] MEDS ORDERED: TPN PER PHARMACY 0 ML IV SCH (09:45)
[2017-07-25] MEDS ORDERED: ENOXAPARIN SOD 40 MG/0.4 ML SYRINGE SC SCH (10:00)
[2017-07-25] MEDS ORDERED: PHENYLEPHRINE INJ 40 MG in SODIUM CHL 0.9% 250 ML IV SCH (10:45)
[2017-07-25] MEDS: VASOPRESSIN 50 UNITS in SODIUM CHL 0.9% 247.5 ML IV SCH (10:45)
[2017-07-25] MEDS: POTASSIUM CHL 10% (20 MEQ/15ML) 15ml ORAL SOLN GT SCH (11:45)
[2017-07-25] MEDS: PANTOPRAZOLE 40 MG/10 ML VIAL IV SCH (11:45)
[2017-07-25] MEDS: CLOPIDOGREL BISULFATE 75 MG TAB PO SCH (11:45)
[2017-07-25 12:03] LABS: Phosphorus 3.6 mg/dL (2.5-4.90)
[2017-07-25] MEDS: ALBUMIN 25% 100 ML IV SCH ×2 (14:25→21:26)
[2017-07-25] MEDS: MIDAZOLAM DRIP 50 mg/50mL 50 ML IV SCH (15:23)
[2017-07-25] MEDS ORDERED: NOREPINEPHRINE BITARTRATE 2 ML IV ONE (16:59)
[2017-07-25] MEDS ORDERED: DEXTROSE (50%) 50ML SYRG IV SCH (20:00)
[2017-07-25] MEDS ORDERED: TPN PER PHARMACY IV NR ×10 (20:00)
[2017-07-25 20:11] LABS: Urine Amorphous Crystal FEW /hpf (None Seen); Urine Bacteria FEW /hpf (None Seen); Urine Blood 1+ /uL (Negative); Urine Mucus FEW (None Seen); Urine Specific Gravity 1.005 (1.001-1.035); Urine WBC 1 /hpf (0 - 3)
[2017-07-25] MEDS: InsuLIN REG 1unit/0.01ml Soln (100units/ml) SC SCH (23:55)
[2017-07-25] MEDS: ACCU-CHEK COMFORT CURVE STRIP VI SCH (23:55)
[2017-07-26] VITALS (106 sets, daily range): BP systolic 86–155; BP diastolic 45–91
[2017-07-26 03:58] LABS: Basophils # (auto) 0 uL; Basophils % (auto) 0.1 % (0.0-2.0); Eosinophils # (auto) 0.1 uL; Hemoglobin 7.7 g/dL (13.5-17.5); Lymphocytes # (auto) 0.3 uL; Lymphocytes % (auto) 2.4 % (10.0-50.0); Monocytes # (auto) 0.5 uL
[2017-07-26 04:00] LABS: Eosinophils % (auto) 0.5 % (0.0-7.0); Hematocrit 23.1 % (41.0-53.0); Mean Corpuscular Hemoglobin 30.7 pg (28.0-32.0); Mean Corpuscular Hgb Conc. 33.4 g/dL (32.0-36.0); Mean Corpuscular Volume 92.1 fL (80.0-100.0); Neutrophils # (auto) 11.2 uL; Nucleated Red Blood Cells % 0.5 %; Platelet Count (auto) 41 10^3/uL (140-450); Red Blood Cells 2.51 10^6/uL (4.5-5.90); Red Cell Distribution Width 15.7 % (11.8-14.3)
[2017-07-26 04:12] LABS: Albumin 2.1 g/dL (3.4-5.0); Calcium 7.1 mg/dL (8.5-10.1); Potassium 3.4 mmol/L (3.5-5.1)
[2017-07-26 04:15] LABS: BUN/Creatinine Ratio 23.4; Magnesium 1.9 mg/dL (1.6-2.6)
[2017-07-26 04:18] LABS: Total Protein 4.3 g/dL (6.4-8.2)
[2017-07-26 04:31] LABS: Phosphorus 2.6 mg/dL (2.5-4.90)
[2017-07-26] MEDS: NOREPINEPHRINE 8 MG/250ML KIT 250 ML IV SCH ×2 (04:45→22:09)
[2017-07-26] MEDS: FUROSEMIDE 100 MG/10ML VIAL IV SCH ×2 (05:30→18:19)
[2017-07-26] MEDS: CLINDAMYCIN 600MG IV 50 ML IV SCH ×3 (05:30→21:49)
[2017-07-26] MEDS: InsuLIN REG 1unit/0.01ml Soln (100units/ml) SC SCH ×3 (05:31→18:25)
[2017-07-26] MEDS: ACCU-CHEK COMFORT CURVE STRIP VI SCH ×3 (05:31→18:19)
[2017-07-26] MEDS: ALBUMIN 25% 100 ML IV SCH ×3 (05:36→21:49)
[2017-07-26] MEDS ORDERED: POTASSIUM CHL 10% (20 MEQ/15ML) 15ml ORAL SOLN PO ONE (08:30)
[2017-07-26] MEDS: CLOPIDOGREL BISULFATE 75 MG TAB PO SCH (09:40)
[2017-07-26] MEDS: PANTOPRAZOLE 40 MG/10 ML VIAL IV SCH (09:40)
[2017-07-26] MEDS: POTASSIUM CHL 10% (20 MEQ/15ML) 15ml ORAL SOLN GT SCH (09:41)
[2017-07-26] MEDS: SPIRONOLACTONE 25 MG TAB PO SCH (09:41)
[2017-07-26] MEDS: VASOPRESSIN 50 UNITS in SODIUM CHL 0.9% 247.5 ML IV SCH (10:45)
[2017-07-26] MEDS: DOPamine 1600MCG/ML D5W 250 ML IV SCH (12:12)
[2017-07-26] MEDS: MEROPENEM 1gm/20ml IVPUSH 20 ML IV SCH ×2 (13:51→21:49)
[2017-07-26] MEDS: MIDAZOLAM DRIP 50 mg/50mL 50 ML IV SCH (15:23)
[2017-07-26 18:14] LABS: Hemoglobin 8.6 g/dL (13.5-17.5)
[2017-07-26 18:25] LABS: BUN/Creatinine Ratio 23.7; Calcium 7.5 mg/dL (8.5-10.1); Potassium 3.6 mmol/L (3.5-5.1)
[2017-07-26] MEDS ORDERED: TPN PER PHARMACY IV NR ×11 (20:00)
[2017-07-26] MEDS: PHENYLEPHRINE INJ 40 MG in D5W 5% 250 ML IV SCH (20:05)
[2017-07-27] VITALS (87 sets, daily range): BP systolic 81–136; BP diastolic 38–83
[2017-07-27 04:18] LABS: Basophils # (auto) 0 uL; Eosinophils # (auto) 0.1 uL; Hemoglobin 8.3 g/dL (13.5-17.5); Lymphocytes # (auto) 0.4 uL; Lymphocytes % (auto) 2.2 % (10.0-50.0); Monocytes # (auto) 0.5 uL; Nucleated Red Blood Cells % 0.1 %
[2017-07-27 04:20] LABS: Basophils % (auto) 0.1 % (0.0-2.0); Eosinophils % (auto) 0.4 % (0.0-7.0); Hematocrit 24.5 % (41.0-53.0); Mean Corpuscular Hemoglobin 30.6 pg (28.0-32.0); Mean Corpuscular Hgb Conc. 33.9 g/dL (32.0-36.0); Mean Corpuscular Volume 90.3 fL (80.0-100.0); Monocytes % (auto) 2.9 % (0.0-12.0); Neutrophils # (auto) 16.4 uL; Neutrophils % (auto) 94.4 % (37.0-80.0); Platelet Count (auto) 50 10^3/uL (140-450); Red Blood Cells 2.71 10^6/uL (4.5-5.90); Red Cell Distribution Width 15.7 % (11.8-14.3); White Blood Cell 17.4 10^3/uL (4.4-10.8)
[2017-07-27 04:31] LABS: Albumin 2.6 g/dL (3.4-5.0); BUN/Creatinine Ratio 26.8; Bilirubin, Total 1.4 mg/dL (0.2-1.0); Calcium 7.5 mg/dL (8.5-10.1); Magnesium 1.7 mg/dL (1.6-2.6); Phosphorus 2.4 mg/dL (2.5-4.90); Potassium 3.1 mmol/L (3.5-5.1); Total Protein 4.7 g/dL (6.4-8.2)
[2017-07-27] MEDS: CLINDAMYCIN 600MG IV 50 ML IV SCH (05:50)
[2017-07-27] MEDS: ALBUMIN 25% 100 ML IV SCH ×3 (05:51→22:00)
[2017-07-27] MEDS: ACCU-CHEK COMFORT CURVE STRIP VI SCH ×4 (05:55→17:04)
[2017-07-27] MEDS: InsuLIN REG 1unit/0.01ml Soln (100units/ml) SC SCH ×4 (05:56→18:15)
[2017-07-27] MEDS: FUROSEMIDE 100 MG/10ML VIAL IV SCH ×2 (06:24→18:15)
[2017-07-27] MEDS: PANTOPRAZOLE 40 MG/10 ML VIAL IV SCH (10:15)
[2017-07-27] MEDS: CLOPIDOGREL BISULFATE 75 MG TAB PO SCH (10:16)
[2017-07-27] MEDS: MEROPENEM 1gm/20ml IVPUSH 20 ML IV SCH ×2 (10:16→22:00)
[2017-07-27] MEDS: SPIRONOLACTONE 25 MG TAB PO SCH (10:16)
[2017-07-27] MEDS: POTASSIUM CHL 10% (20 MEQ/15ML) 15ml ORAL SOLN GT SCH (10:17)
[2017-07-27] MEDS: MAGNESIUM SULFATE 1GM/100ML 100 ML IV SCH ×2 (10:19→12:51)
[2017-07-27] MEDS: POTASSIUM CHL 20MEQ/100ML 100 ML IV SCH ×2 (10:20→12:09)
[2017-07-27] MEDS ORDERED: LINEZOLID 600MG/300ML 300 ML IV SCH (11:00)
[2017-07-27] MEDS: metroNIDAZOLE 500MG/100ML 100 ML IV SCH ×2 (12:09→20:00)
[2017-07-27] MEDS: PHENYLEPHRINE INJ 40 MG in D5W 5% 250 ML IV SCH (12:45)
[2017-07-27] MEDS: MIDAZOLAM DRIP 50 mg/50mL 50 ML IV SCH (15:23)
[2017-07-27] MEDS: DOPamine 1600MCG/ML D5W 250 ML IV SCH (18:25)
[2017-07-27] MEDS ORDERED: TPN PER PHARMACY IV NR ×11 (20:00)
[2017-07-27] MEDS: MORPHINE SULFATE 4 MG/ML SYR/VIAL IV PRN (23:37)
[2017-07-28] VITALS (56 sets, daily range): BP systolic 91–153; BP diastolic 46–82
[2017-07-28 03:36] LABS: Basophils # (auto) 0 uL; Eosinophils # (auto) 0.1 uL; Eosinophils % (auto) 0.5 % (0.0-7.0); Hemoglobin 7.4 g/dL (13.5-17.5); Monocytes % (auto) 2.9 % (0.0-12.0); Neutrophils # (auto) 14.5 uL; Neutrophils % (auto) 93.6 % (37.0-80.0); White Blood Cell 15.5 10^3/uL (4.4-10.8)
[2017-07-28 03:38] LABS: Hematocrit 21.9 % (41.0-53.0); Lymphocytes # (auto) 0.5 uL; Mean Corpuscular Hemoglobin 30.4 pg (28.0-32.0); Mean Corpuscular Hgb Conc. 33.8 g/dL (32.0-36.0); Mean Corpuscular Volume 89.8 fL (80.0-100.0); Monocytes # (auto) 0.4 uL; Platelet Count (auto) 58 10^3/uL (140-450); Red Blood Cells 2.44 10^6/uL (4.5-5.90); Red Cell Distribution Width 15.7 % (11.8-14.3)
[2017-07-28] MEDS: metroNIDAZOLE 500MG/100ML 100 ML IV SCH ×3 (04:00→20:00)
[2017-07-28 05:05] LABS: Albumin 3.2 g/dL (3.4-5.0); BUN/Creatinine Ratio 32.7; Calcium 7.9 mg/dL (8.5-10.1); Magnesium 1.9 mg/dL (1.6-2.6)
[2017-07-28 05:07] LABS: Bilirubin, Total 1.3 mg/dL (0.2-1.0); Total Protein 5.1 g/dL (6.4-8.2)
[2017-07-28] MEDS: PHENYLEPHRINE INJ 40 MG in D5W 5% 250 ML IV SCH ×2 (05:58→22:05)
[2017-07-28] MEDS: FUROSEMIDE 100 MG/10ML VIAL IV SCH ×2 (06:00→18:05)
[2017-07-28] MEDS: ALBUMIN 25% 100 ML IV SCH ×3 (06:00→21:48)
[2017-07-28] MEDS: InsuLIN REG 1unit/0.01ml Soln (100units/ml) SC SCH ×3 (06:02→18:09)
[2017-07-28] MEDS: ACCU-CHEK COMFORT CURVE STRIP VI SCH ×4 (06:02→18:05)
[2017-07-28 08:28] LABS: Phosphorus 2.4 mg/dL (2.5-4.90)
[2017-07-28] MEDS: DOPamine 1600MCG/ML D5W 250 ML IV SCH (09:45)
[2017-07-28] MEDS: MEROPENEM 1gm/20ml IVPUSH 20 ML IV SCH ×2 (10:00→21:48)
[2017-07-28] MEDS: SPIRONOLACTONE 25 MG TAB PO SCH (11:13)
[2017-07-28] MEDS: CLOPIDOGREL BISULFATE 75 MG TAB PO SCH (11:13)
[2017-07-28] MEDS: PANTOPRAZOLE 40 MG/10 ML VIAL IV SCH (11:14)
[2017-07-28] MEDS: POTASSIUM CHL 20MEQ/100ML 100 ML IV SCH ×2 (11:14→13:45)
[2017-07-28] MEDS ORDERED: ACETAMINOPHEN 650 MG RECT SUPP PR PRN (12:15)
[2017-07-28] MEDS: NOREPINEPHRINE 8 MG/250ML KIT 250 ML IV SCH (12:37)
[2017-07-28] MEDS: MIDAZOLAM DRIP 50 mg/50mL 50 ML IV SCH (15:23)
[2017-07-28] MEDS ORDERED: TPN PER PHARMACY IV NR ×11 (20:00)
[2017-07-28] MEDS: MORPHINE SULFATE 4 MG/ML SYR/VIAL IV PRN (23:42)
[2017-07-29] VITALS (61 sets, daily range): BP systolic 82–155; BP diastolic 50–106
[2017-07-29] MEDS: DOPamine 1600MCG/ML D5W 250 ML IV SCH (02:35)
[2017-07-29] MEDS: metroNIDAZOLE 500MG/100ML 100 ML IV SCH ×3 (02:58→20:23)
[2017-07-29 04:08] LABS: Albumin 2.9 g/dL (3.4-5.0); BUN/Creatinine Ratio 44.3; Calcium 7.4 mg/dL (8.5-10.1); Magnesium 1.7 mg/dL (1.6-2.6); Potassium 3.3 mmol/L (3.5-5.1)
[2017-07-29 04:11] LABS: Bilirubin, Total 1.1 mg/dL (0.2-1.0); Phosphorus 2.3 mg/dL (2.5-4.90); Total Protein 4.6 g/dL (6.4-8.2)
[2017-07-29] MEDS: FUROSEMIDE 100 MG/10ML VIAL IV SCH (05:37)
[2017-07-29] MEDS: ALBUMIN 25% 100 ML IV SCH ×3 (05:37→22:12)
[2017-07-29] MEDS: InsuLIN REG 1unit/0.01ml Soln (100units/ml) SC SCH ×4 (05:39→17:48)
[2017-07-29] MEDS: ACCU-CHEK COMFORT CURVE STRIP VI SCH ×4 (05:39→17:46)
[2017-07-29] MEDS: MORPHINE SULFATE 4 MG/ML SYR/VIAL IV PRN (08:39)
[2017-07-29] MEDS ORDERED: POTASSIUM CHL 10% (20 MEQ/15ML) 15ml ORAL SOLN GT ONE (09:15)
[2017-07-29] MEDS: MEROPENEM 1gm/20ml IVPUSH 20 ML IV SCH ×2 (10:00→17:47)
[2017-07-29] MEDS ORDERED: POTASSIUM CHL 10% (20 MEQ/15ML) 15ml ORAL SOLN GT SCH (10:00)
[2017-07-29] MEDS: PANTOPRAZOLE 40 MG/10 ML VIAL IV SCH (10:06)
[2017-07-29] MEDS: CLOPIDOGREL BISULFATE 75 MG TAB PO SCH (10:06)
[2017-07-29] MEDS: SPIRONOLACTONE 25 MG TAB PO SCH (10:06)
[2017-07-29] MEDS ORDERED: POTASSIUM PHOSP 22MEQ(15MMOLE) in NS 100 ML IV ONE (11:00)
[2017-07-29] MEDS ORDERED: POTASSIUM CHL 20MEQ/100ML 100 ML IV ONE (11:00)
[2017-07-29] MEDS: NOREPINEPHRINE 8 MG/250ML KIT 250 ML IV SCH (12:15)
[2017-07-29] MEDS: PHENYLEPHRINE INJ 40 MG in D5W 5% 250 ML IV SCH (14:45)
[2017-07-29] MEDS ORDERED: CALCIUM GLUC 4.65meq/50ml D5AE 50 ML IV ONE (15:00)
[2017-07-29] MEDS: MIDAZOLAM DRIP 50 mg/50mL 50 ML IV SCH (15:23)
[2017-07-29] MEDS ORDERED: TPN PER PHARMACY IV NR ×11 (20:00)
[2017-07-30] VITALS (32 sets, daily range): BP systolic 73–138; BP diastolic 56–100
[2017-07-30] MEDS: ACCU-CHEK COMFORT CURVE STRIP VI SCH ×4 (00:01→18:05)
[2017-07-30] MEDS: InsuLIN REG 1unit/0.01ml Soln (100units/ml) SC SCH ×4 (00:01→18:00)
[2017-07-30] MEDS: MEROPENEM 1gm/20ml IVPUSH 20 ML IV SCH ×3 (01:43→17:58)
[2017-07-30] MEDS: metroNIDAZOLE 500MG/100ML 100 ML IV SCH ×3 (03:47→20:00)
[2017-07-30 04:12] LABS: Hemoglobin 9.6 g/dL (13.5-17.5); Mean Corpuscular Hemoglobin 31.2 pg (28.0-32.0); Mean Corpuscular Hgb Conc. 34.4 g/dL (32.0-36.0); Mean Corpuscular Volume 90.9 fL (80.0-100.0); Platelet Count (auto) 89 10^3/uL (140-450); Red Blood Cells 3.08 10^6/uL (4.5-5.90); Red Cell Distribution Width 15.2 % (11.8-14.3); White Blood Cell 9.5 10^3/uL (4.4-10.8)
[2017-07-30 04:14] LABS: Band Neutrophils % (manual) 0; Basophils % (manual) 0 (0.0-2.0); Blast Cells 0; Metamyelocytes % 0; Myelocytes % 0; Promyelocytes % 0; Reactive Lymphocytes 0
[2017-07-30 04:27] LABS: Albumin 3.2 g/dL (3.4-5.0); BUN/Creatinine Ratio 47.9; Bilirubin, Total 1.5 mg/dL (0.2-1.0); Magnesium 1.9 mg/dL (1.6-2.6); Phosphorus 2.5 mg/dL (2.5-4.90); Potassium 4.6 mmol/L (3.5-5.1); Total Protein 5.3 g/dL (6.4-8.2)
[2017-07-30 04:52] LABS: Eosinophils % (manual) 1 (0-7); Lymphocytes % (manual) 8 (10.0-50.0); Monocytes % (manual) 5 (0-12)
[2017-07-30] MEDS: ALBUMIN 25% 100 ML IV SCH ×2 (05:32→14:00)
[2017-07-30] MEDS: PHENYLEPHRINE INJ 40 MG in D5W 5% 250 ML IV SCH (07:25)
[2017-07-30] MEDS: DOPamine 1600MCG/ML D5W 250 ML IV SCH (09:40)
[2017-07-30] MEDS: PANTOPRAZOLE 40 MG/10 ML VIAL IV SCH (09:55)
[2017-07-30] MEDS: CLOPIDOGREL BISULFATE 75 MG TAB PO SCH (09:55)
[2017-07-30] MEDS: SPIRONOLACTONE 25 MG TAB PO SCH (09:55)
[2017-07-30] MEDS: NOREPINEPHRINE 8 MG/250ML KIT 250 ML IV SCH (12:15)
[2017-07-30] MEDS: MIDAZOLAM DRIP 50 mg/50mL 50 ML IV SCH (13:31)
[2017-07-30] MEDS: ACETAMINOPHEN 650 mg PER 20 mL UD GT PRN (14:51)
[2017-07-30] MEDS ORDERED: TPN PER PHARMACY IV NR ×10 (20:00)
[2017-07-31] VITALS (36 sets, daily range): BP systolic 87–149; BP diastolic 48–102
[2017-07-31] MEDS: MEROPENEM 1gm/20ml IVPUSH 20 ML IV SCH ×3 (02:00→18:03)
[2017-07-31 04:21] LABS: Hematocrit 27.3 % (41.0-53.0); Hemoglobin 9.3 g/dL (13.5-17.5); Mean Corpuscular Hemoglobin 31.2 pg (28.0-32.0); Mean Corpuscular Volume 91.7 fL (80.0-100.0); Platelet Count (auto) 122 10^3/uL (140-450); Red Blood Cells 2.98 10^6/uL (4.5-5.90); Red Cell Distribution Width 15.6 % (11.8-14.3); White Blood Cell 9.1 10^3/uL (4.4-10.8)
[2017-07-31 04:26] LABS: Band Neutrophils % (manual) 0
[2017-07-31] MEDS: metroNIDAZOLE 500MG/100ML 100 ML IV SCH ×3 (04:26→20:00)
[2017-07-31 04:27] LABS: Basophils % (manual) 0 (0.0-2.0); Blast Cells 0; Metamyelocytes % 0; Myelocytes % 0; Promyelocytes % 0; Reactive Lymphocytes 0
[2017-07-31 04:45] LABS: Albumin 3.2 g/dL (3.4-5.0); BUN/Creatinine Ratio 47.3; Bilirubin, Total 1.2 mg/dL (0.2-1.0); Calcium 8.3 mg/dL (8.5-10.1); Phosphorus 2.3 mg/dL (2.5-4.90); Potassium 4.4 mmol/L (3.5-5.1); Total Protein 5.5 g/dL (6.4-8.2)
[2017-07-31 05:03] LABS: Eosinophils % (manual) 1 (0-7); Lymphocytes % (manual) 6 (10.0-50.0); Monocytes % (manual) 11 (0-12)
[2017-07-31] MEDS: InsuLIN REG 1unit/0.01ml Soln (100units/ml) SC SCH ×4 (06:00→18:12)
[2017-07-31] MEDS: ACCU-CHEK COMFORT CURVE STRIP VI SCH ×4 (06:00→18:03)
[2017-07-31] MEDS: PANTOPRAZOLE 40 MG/10 ML VIAL IV SCH (10:20)
[2017-07-31] MEDS: ACETAMINOPHEN 650 mg PER 20 mL UD GT PRN ×2 (10:20→16:39)
[2017-07-31] MEDS: CLOPIDOGREL BISULFATE 75 MG TAB PO SCH (10:20)
[2017-07-31] MEDS ORDERED: POTASSIUM PHOSPHATE 22 MEQ in SODIUM CHL 0.9% 100 ML IV ONE (10:30)
[2017-07-31] MEDS: NOREPINEPHRINE 8 MG/250ML KIT 250 ML IV SCH (12:15)
[2017-07-31] MEDS ORDERED: TPN PER PHARMACY IV NR ×10 (20:00)
[2017-08-01] VITALS (35 sets, daily range): BP systolic 94–174; BP diastolic 62–109
[2017-08-01] MEDS: MEROPENEM 1gm/20ml IVPUSH 20 ML IV SCH ×3 (01:59→18:00)
[2017-08-01] MEDS: metroNIDAZOLE 500MG/100ML 100 ML IV SCH ×3 (04:00→20:00)
[2017-08-01 04:09] LABS: Hematocrit 27.8 % (41.0-53.0); Hemoglobin 9.5 g/dL (13.5-17.5); Mean Corpuscular Hemoglobin 31.2 pg (28.0-32.0); Mean Corpuscular Hgb Conc. 34.1 g/dL (32.0-36.0); Mean Corpuscular Volume 91.4 fL (80.0-100.0); Platelet Count (auto) 154 10^3/uL (140-450); Red Blood Cells 3.04 10^6/uL (4.5-5.90); Red Cell Distribution Width 16.1 % (11.8-14.3); White Blood Cell 8.8 10^3/uL (4.4-10.8)
[2017-08-01 04:23] LABS: Basophils % (manual) 0 (0.0-2.0); Blast Cells 0; Eosinophils % (manual) 0 (0-7); Myelocytes % 0; Promyelocytes % 0; Reactive Lymphocytes 0
[2017-08-01 04:24] LABS: Albumin 2.9 g/dL (3.4-5.0); BUN/Creatinine Ratio 57.1; Bilirubin, Total 1.1 mg/dL (0.2-1.0); Magnesium 2.2 mg/dL (1.6-2.6); Phosphorus 3.1 mg/dL (2.5-4.90); Potassium 4.1 mmol/L (3.5-5.1); Total Protein 5.3 g/dL (6.4-8.2)
[2017-08-01 05:04] LABS: Band Neutrophils % (manual) 6; Lymphocytes % (manual) 10 (10.0-50.0); Metamyelocytes % 1; Monocytes % (manual) 7 (0-12)
[2017-08-01] MEDS: InsuLIN REG 1unit/0.01ml Soln (100units/ml) SC SCH ×4 (06:00→18:56)
[2017-08-01] MEDS: ACCU-CHEK COMFORT CURVE STRIP VI SCH ×4 (06:00→18:00)
[2017-08-01] MEDS: CLOPIDOGREL BISULFATE 75 MG TAB PO SCH (09:41)
[2017-08-01] MEDS: PANTOPRAZOLE 40 MG/10 ML VIAL IV SCH (09:41)
[2017-08-01] MEDS: NOREPINEPHRINE 8 MG/250ML KIT 250 ML IV SCH (12:15)
[2017-08-01] MEDS ORDERED: TPN PER PHARMACY IV NR ×10 (20:00)
[2017-08-01] MEDS: ACETAMINOPHEN 650 mg PER 20 mL UD GT PRN (20:03)
[2017-08-02] VITALS (60 sets, daily range): BP systolic 83–162; BP diastolic 44–106
[2017-08-02] MEDS: ACCU-CHEK COMFORT CURVE STRIP VI SCH ×4 (00:05→18:00)
[2017-08-02] MEDS: MEROPENEM 1gm/20ml IVPUSH 20 ML IV SCH ×3 (02:00→18:33)
[2017-08-02 03:45] LABS: Hematocrit 33.2 % (41.0-53.0); Hemoglobin 10.9 g/dL (13.5-17.5); Mean Corpuscular Hemoglobin 30.2 pg (28.0-32.0); Mean Corpuscular Hgb Conc. 32.9 g/dL (32.0-36.0); Mean Corpuscular Volume 91.8 fL (80.0-100.0); Platelet Count (auto) 218 10^3/uL (140-450); Red Blood Cells 3.61 10^6/uL (4.5-5.90); Red Cell Distribution Width 15.9 % (11.8-14.3); White Blood Cell 11.9 10^3/uL (4.4-10.8)
[2017-08-02 04:05] LABS: BUN/Creatinine Ratio 64.7; Bilirubin, Total 1.1 mg/dL (0.2-1.0); Calcium 8.1 mg/dL (8.5-10.1); Phosphorus 3.5 mg/dL (2.5-4.90); Potassium 4.3 mmol/L (3.5-5.1); Total Protein 5.8 g/dL (6.4-8.2)
[2017-08-02] MEDS: metroNIDAZOLE 500MG/100ML 100 ML IV SCH ×3 (04:05→19:36)
[2017-08-02 04:10] LABS: Basophils % (manual) 0 (0.0-2.0); Blast Cells 0; Metamyelocytes % 0; Promyelocytes % 0; Reactive Lymphocytes 0
[2017-08-02] MEDS: InsuLIN REG 1unit/0.01ml Soln (100units/ml) SC SCH ×4 (06:00→18:00)
[2017-08-02] MEDS: ACETAMINOPHEN 650 mg PER 20 mL UD GT PRN (06:41)
[2017-08-02] MEDS: MORPHINE SULFATE 4 MG/ML SYR/VIAL IV PRN ×2 (09:46→21:54)
[2017-08-02] MEDS: CLOPIDOGREL BISULFATE 75 MG TAB PO SCH (10:06)
[2017-08-02] MEDS: FLUCONAZOLE 200MG/100ML 100 ML IV SCH ×2 (10:06→11:30)
[2017-08-02] MEDS: PANTOPRAZOLE 40 MG/10 ML VIAL IV SCH (10:06)
[2017-08-02] MEDS: ENOXAPARIN SOD 40 MG/0.4 ML SYRINGE SC SCH (10:07)
[2017-08-02] MEDS: NOREPINEPHRINE 8 MG/250ML KIT 250 ML IV SCH (12:15)
[2017-08-02] MEDS ORDERED: MIDAZOLAM DRIP 50 mg/50mL 50 ML IV ONE (12:33)
[2017-08-02] MEDS: MIDAZOLAM DRIP 50 mg/50mL 50 ML IV SCH (12:38)
[2017-08-02 13:52] LABS: Band Neutrophils % (manual) 5; Eosinophils % (manual) 2 (0-7); Lymphocytes % (manual) 9 (10.0-50.0); Monocytes % (manual) 5 (0-12); Myelocytes % 1
[2017-08-02] MEDS ORDERED: TPN PER PHARMACY IV NR ×10 (20:00)
[2017-08-03] VITALS (82 sets, daily range): BP systolic 75–172; BP diastolic 42–105
[2017-08-03] MEDS: ACCU-CHEK COMFORT CURVE STRIP VI SCH ×3 (00:24→18:00)
[2017-08-03] MEDS: MEROPENEM 1gm/20ml IVPUSH 20 ML IV SCH ×3 (02:15→18:15)
[2017-08-03] MEDS: MIDAZOLAM DRIP 50 mg/50mL 50 ML IV SCH (02:17)
[2017-08-03] MEDS: metroNIDAZOLE 500MG/100ML 100 ML IV SCH (04:30)
[2017-08-03 05:19] LABS: Hematocrit 31.4 % (41.0-53.0); Hemoglobin 10.5 g/dL (13.5-17.5); Mean Corpuscular Hemoglobin 30.7 pg (28.0-32.0); Mean Corpuscular Hgb Conc. 33.2 g/dL (32.0-36.0); Mean Corpuscular Volume 92.4 fL (80.0-100.0); Platelet Count (auto) 192 10^3/uL (140-450); Red Cell Distribution Width 15.6 % (11.8-14.3); White Blood Cell 9.7 10^3/uL (4.4-10.8)
[2017-08-03 05:39] LABS: Basophils % (manual) 0 (0.0-2.0); Blast Cells 0; Eosinophils % (manual) 0 (0-7); Metamyelocytes % 0; Myelocytes % 0; Promyelocytes % 0; Reactive Lymphocytes 0
[2017-08-03 05:47] LABS: Albumin 2.4 g/dL (3.4-5.0); Bilirubin, Total 0.7 mg/dL (0.2-1.0); Calcium 7.8 mg/dL (8.5-10.1); Magnesium 2.3 mg/dL (1.6-2.6); Phosphorus 2.9 mg/dL (2.5-4.90); Potassium 3.8 mmol/L (3.5-5.1); Pre Albumin 11.2 mg/dL (20.0-40.0); Total Protein 5.1 g/dL (6.4-8.2)
[2017-08-03 06:56] LABS: Band Neutrophils % (manual) 7; Lymphocytes % (manual) 8 (10.0-50.0); Monocytes % (manual) 11 (0-12)
[2017-08-03] MEDS: CLOPIDOGREL BISULFATE 75 MG TAB PO SCH (09:52)
[2017-08-03] MEDS: FLUCONAZOLE 200MG/100ML 100 ML IV SCH ×2 (09:52→11:00)
[2017-08-03] MEDS: PANTOPRAZOLE 40 MG/10 ML VIAL IV SCH (09:52)
[2017-08-03] MEDS: ENOXAPARIN SOD 40 MG/0.4 ML SYRINGE SC SCH (09:53)
[2017-08-03] MEDS: InsuLIN REG 1unit/0.01ml Soln (100units/ml) SC SCH ×3 (12:00→18:00)
[2017-08-03] MEDS: NOREPINEPHRINE 8 MG/250ML KIT 250 ML IV SCH (12:15)
[2017-08-03] MEDS: ACETAMINOPHEN 650 mg PER 20 mL UD GT PRN (12:38)
[2017-08-03] MEDS: MORPHINE SULFATE 4 MG/ML SYR/VIAL IV PRN ×2 (13:40→21:30)
[2017-08-03] MEDS ORDERED: TPN PER PHARMACY IV NR ×10 (20:00)
[2017-08-04] VITALS (107 sets, daily range): BP systolic 71–149; BP diastolic 33–94
[2017-08-04] MEDS: MEROPENEM 1gm/20ml IVPUSH 20 ML IV SCH ×3 (02:30→17:38)
[2017-08-04] MEDS ORDERED: MORPHINE SULF INJ 2 MG/ML SYRINGE 1ML IV PRN (03:00)
[2017-08-04] MEDS ORDERED: MORPHINE SULFATE 4 MG/ML SYR/VIAL ONE (03:25)
[2017-08-04] MEDS ORDERED: MORPHINE SULFATE 4 MG/ML SYR/VIAL IV PRN (05:30)
[2017-08-04] MEDS: ACCU-CHEK COMFORT CURVE STRIP VI SCH ×4 (06:00→17:38)
[2017-08-04] MEDS: InsuLIN REG 1unit/0.01ml Soln (100units/ml) SC SCH ×4 (06:00→17:38)
[2017-08-04 06:20] LABS: Albumin 2.4 g/dL (3.4-5.0); Calcium 7.8 mg/dL (8.5-10.1); Magnesium 1.9 mg/dL (1.6-2.6); Potassium 4.2 mmol/L (3.5-5.1)
[2017-08-04 06:22] LABS: BUN/Creatinine Ratio 62.3; Phosphorus 2.9 mg/dL (2.5-4.90)
[2017-08-04 06:24] LABS: Bilirubin, Total 0.8 mg/dL (0.2-1.0); Total Protein 5.1 g/dL (6.4-8.2)
[2017-08-04] MEDS: MIDAZOLAM DRIP 50 mg/50mL 50 ML IV SCH (07:53)
[2017-08-04] MEDS: FLUCONAZOLE 200MG/100ML 100 ML IV SCH ×2 (09:38→10:43)
[2017-08-04] MEDS: PANTOPRAZOLE 40 MG/10 ML VIAL IV SCH (09:38)
[2017-08-04] MEDS: ENOXAPARIN SOD 40 MG/0.4 ML SYRINGE SC SCH (09:38)
[2017-08-04] MEDS: NOREPINEPHRINE 8 MG/250ML KIT 250 ML IV SCH ×2 (12:15→13:36)
[2017-08-04] MEDS ORDERED: FAT EMULSION IV NR ×10 (20:00)
[2017-08-04] MEDS ORDERED: POTASSIUM PHOSPHATE IV NR ×10 (20:00)
[2017-08-04] MEDS ORDERED: POTASSIUM ACETATE IV NR ×10 (20:00)
[2017-08-04] MEDS ORDERED: [UNRECOGNIZED DRUG - OTHER] IV NR ×10 (20:00)
[2017-08-04] MEDS: MORPHINE SULFATE 4 MG/ML SYR/VIAL IV PRN (21:50)
[2017-08-04] MEDS ORDERED: ENOXAPARIN SOD 40 MG/0.4 ML SYRINGE SC SCH (22:00)
[2017-08-04] MEDS: ENOXAPARIN SOD 60 MG/0.6 ML SYRINGE SC SCH (22:08)
[2017-08-05] VITALS (103 sets, daily range): BP systolic 83–149; BP diastolic 38–100
[2017-08-05] MEDS: MEROPENEM 1gm/20ml IVPUSH 20 ML IV SCH ×3 (02:00→18:00)
[2017-08-05] MEDS: MIDAZOLAM DRIP 50 mg/50mL 50 ML IV SCH ×2 (03:00→12:29)
[2017-08-05 04:03] LABS: Potassium 4.5 mmol/L (3.5-5.1)
[2017-08-05 04:07] LABS: Albumin 2.3 g/dL (3.4-5.0); BUN/Creatinine Ratio 62.1; Calcium 7.8 mg/dL (8.5-10.1); Magnesium 1.9 mg/dL (1.6-2.6)
[2017-08-05 04:10] LABS: Bilirubin, Total 0.6 mg/dL (0.2-1.0); Phosphorus 3.1 mg/dL (2.5-4.90); Total Protein 5.3 g/dL (6.4-8.2)
[2017-08-05] MEDS: ACCU-CHEK COMFORT CURVE STRIP VI SCH ×4 (06:00→18:00)
[2017-08-05] MEDS: InsuLIN REG 1unit/0.01ml Soln (100units/ml) SC SCH ×4 (06:00→18:00)
[2017-08-05] MEDS: FLUCONAZOLE 200MG/100ML 100 ML IV SCH ×2 (09:57→11:35)
[2017-08-05] MEDS: ENOXAPARIN SOD 60 MG/0.6 ML SYRINGE SC SCH ×2 (09:57→21:57)
[2017-08-05] MEDS: PANTOPRAZOLE 40 MG/10 ML VIAL IV SCH (09:57)
[2017-08-05] MEDS: NOREPINEPHRINE 8 MG/250ML KIT 250 ML IV SCH (12:30)
[2017-08-05] MEDS ORDERED: [UNRECOGNIZED DRUG - OTHER] IV NR ×22 (20:00)
[2017-08-05] MEDS ORDERED: SODIUM ACETATE IV NR ×22 (20:00)
[2017-08-05] MEDS ORDERED: TPN PER PHARMACY IV NR ×11 (20:00)
[2017-08-05] MEDS ORDERED: POTASSIUM ACETATE IV NR ×22 (20:00)
[2017-08-05] MEDS ORDERED: FAT EMULSION IV NR ×22 (20:00)
[2017-08-06] VITALS (96 sets, daily range): BP systolic 63–154; BP diastolic 33–103
[2017-08-06] MEDS: InsuLIN REG 1unit/0.01ml Soln (100units/ml) SC SCH ×4 (00:20→18:00)
[2017-08-06] MEDS: ACCU-CHEK COMFORT CURVE STRIP VI SCH ×4 (00:20→19:02)
[2017-08-06] MEDS: MEROPENEM 1gm/20ml IVPUSH 20 ML IV SCH ×3 (02:14→19:01)
[2017-08-06] MEDS: MIDAZOLAM DRIP 50 mg/50mL 50 ML IV SCH ×2 (07:03→22:59)
[2017-08-06 07:29] LABS: Bilirubin, Total 0.7 mg/dL (0.2-1.0); Calcium 7.6 mg/dL (8.5-10.1); Magnesium 2.2 mg/dL (1.6-2.6); Phosphorus 2.8 mg/dL (2.5-4.90); Potassium 4.7 mmol/L (3.5-5.1); Pre Albumin 10.7 mg/dL (20.0-40.0); Total Protein 5.2 g/dL (6.4-8.2)
[2017-08-06] MEDS: FLUCONAZOLE 200MG/100ML 100 ML IV SCH ×2 (11:52→12:06)
[2017-08-06] MEDS: ENOXAPARIN SOD 60 MG/0.6 ML SYRINGE SC SCH ×2 (11:52→22:14)
[2017-08-06] MEDS: PANTOPRAZOLE 40 MG/10 ML VIAL IV SCH (11:52)
[2017-08-06] MEDS ORDERED: TPN PER PHARMACY IV NR ×10 (20:00)
[2017-08-07] VITALS (93 sets, daily range): BP systolic 80–114; BP diastolic 44–77
[2017-08-07] MEDS: MEROPENEM 1gm/20ml IVPUSH 20 ML IV SCH ×3 (02:16→18:44)
[2017-08-07 04:52] LABS: Hematocrit 28.5 % (41.0-53.0); Hemoglobin 9.5 g/dL (13.5-17.5); Mean Corpuscular Hemoglobin 30.2 pg (28.0-32.0); Mean Corpuscular Hgb Conc. 33.2 g/dL (32.0-36.0); Mean Corpuscular Volume 90.9 fL (80.0-100.0); Platelet Count (auto) 342 10^3/uL (140-450); Red Blood Cells 3.13 10^6/uL (4.5-5.90); Red Cell Distribution Width 16.3 % (11.8-14.3); White Blood Cell 15.4 10^3/uL (4.4-10.8)
[2017-08-07] MEDS: MIDAZOLAM DRIP 50 mg/50mL 50 ML IV SCH ×2 (05:17→17:22)
[2017-08-07 05:21] LABS: Band Neutrophils % (manual) 0
[2017-08-07 05:22] LABS: Basophils % (manual) 0 (0.0-2.0); Blast Cells 0; Eosinophils % (manual) 0 (0-7); Metamyelocytes % 0; Promyelocytes % 0; Reactive Lymphocytes 0
[2017-08-07 05:53] LABS: Albumin 2.2 g/dL (3.4-5.0); BUN/Creatinine Ratio 57.1; Bilirubin, Total 0.6 mg/dL (0.2-1.0); Calcium 7.8 mg/dL (8.5-10.1); Magnesium 2.1 mg/dL (1.6-2.6); Phosphorus 3.3 mg/dL (2.5-4.90); Potassium 4.6 mmol/L (3.5-5.1); Total Protein 5.7 g/dL (6.4-8.2)
[2017-08-07] MEDS: InsuLIN REG 1unit/0.01ml Soln (100units/ml) SC SCH ×4 (06:20→18:44)
[2017-08-07] MEDS: ACCU-CHEK COMFORT CURVE STRIP VI SCH ×4 (06:20→18:44)
[2017-08-07 06:47] LABS: Lymphocytes % (manual) 8 (10.0-50.0); Monocytes % (manual) 6 (0-12); Myelocytes % 1
[2017-08-07] MEDS: FLUCONAZOLE 200MG/100ML 100 ML IV SCH ×2 (10:29→12:49)
[2017-08-07] MEDS: PANTOPRAZOLE 40 MG/10 ML VIAL IV SCH (10:30)
[2017-08-07] MEDS: ENOXAPARIN SOD 60 MG/0.6 ML SYRINGE SC SCH ×2 (10:30→21:20)
[2017-08-07] MEDS: NOREPINEPHRINE 8 MG/250ML KIT 250 ML IV SCH (12:50)
[2017-08-07] MEDS ORDERED: TPN PER PHARMACY IV NR ×10 (20:00)
[2017-08-07] MEDS: ACETAMINOPHEN 650 mg PER 20 mL UD GT PRN (21:52)
[2017-08-08] VITALS (71 sets, daily range): BP systolic 63–145; BP diastolic 34–95
[2017-08-08] MEDS: MIDAZOLAM DRIP 50 mg/50mL 50 ML IV SCH (01:29)
[2017-08-08] MEDS: MEROPENEM 1gm/20ml IVPUSH 20 ML IV SCH ×3 (02:10→18:12)
[2017-08-08 04:20] LABS: Potassium 3.9 mmol/L (3.5-5.1)
[2017-08-08 04:25] LABS: Albumin 1.8 g/dL (3.4-5.0); BUN/Creatinine Ratio 56.7; Calcium 7.5 mg/dL (8.5-10.1); Phosphorus 3.5 mg/dL (2.5-4.90)
[2017-08-08 04:27] LABS: Bilirubin, Total 0.5 mg/dL (0.2-1.0); Total Protein 5.2 g/dL (6.4-8.2)
[2017-08-08] MEDS: FLUCONAZOLE 200MG/100ML 100 ML IV SCH ×2 (10:06→11:00)
[2017-08-08] MEDS: ENOXAPARIN SOD 60 MG/0.6 ML SYRINGE SC SCH ×2 (10:06→22:00)
[2017-08-08] MEDS: PANTOPRAZOLE 40 MG/10 ML VIAL IV SCH (10:06)
[2017-08-08] MEDS: InsuLIN REG 1unit/0.01ml Soln (100units/ml) SC SCH ×5 (12:00→23:48)
[2017-08-08] MEDS: ACCU-CHEK COMFORT CURVE STRIP VI SCH ×4 (14:28→23:47)
[2017-08-08] MEDS: NOREPINEPHRINE 8 MG/250ML KIT 250 ML IV SCH ×2 (16:26→19:43)
[2017-08-08] MEDS ORDERED: TPN PER PHARMACY IV NR ×12 (20:00)
[2017-08-08] MEDS: ACETAMINOPHEN 650 mg PER 20 mL UD GT PRN (23:47)
[2017-08-09] VITALS (67 sets, daily range): BP systolic 77–151; BP diastolic 40–103
[2017-08-09] MEDS: MEROPENEM 1gm/20ml IVPUSH 20 ML IV SCH ×3 (02:16→18:19)
[2017-08-09] MEDS: MIDAZOLAM DRIP 50 mg/50mL 50 ML IV SCH ×2 (02:16→16:53)
[2017-08-09 04:41] LABS: Albumin 1.9 g/dL (3.4-5.0); BUN/Creatinine Ratio 58.6; Bilirubin, Total 0.5 mg/dL (0.2-1.0); Calcium 7.8 mg/dL (8.5-10.1); Magnesium 2.4 mg/dL (1.6-2.6); Pre Albumin 8.3 mg/dL (20.0-40.0); Total Protein 6.1 g/dL (6.4-8.2)
[2017-08-09] MEDS: InsuLIN REG 1unit/0.01ml Soln (100units/ml) SC SCH ×3 (06:28→18:00)
[2017-08-09] MEDS: ACCU-CHEK COMFORT CURVE STRIP VI SCH ×3 (06:29→18:19)
[2017-08-09] MEDS: PANTOPRAZOLE 40 MG/10 ML VIAL IV SCH (09:44)
[2017-08-09] MEDS: FLUCONAZOLE 200MG/100ML 100 ML IV SCH ×2 (09:44→11:15)
[2017-08-09] MEDS: ENOXAPARIN SOD 60 MG/0.6 ML SYRINGE SC SCH ×2 (09:44→22:00)
[2017-08-09] MEDS ORDERED: TPN PER PHARMACY IV NR ×12 (20:00)
[2017-08-09] MEDS: ACETAMINOPHEN 650 mg PER 20 mL UD GT PRN (20:40)
[2017-08-10] VITALS (65 sets, daily range): BP systolic 59–125; BP diastolic 33–85
[2017-08-10] MEDS: ACCU-CHEK COMFORT CURVE STRIP VI SCH ×4 (00:30→18:36)
[2017-08-10] MEDS: InsuLIN REG 1unit/0.01ml Soln (100units/ml) SC SCH ×4 (00:30→18:00)
[2017-08-10] MEDS: MEROPENEM 1gm/20ml IVPUSH 20 ML IV SCH ×3 (02:30→18:00)
[2017-08-10] MEDS: MIDAZOLAM DRIP 50 mg/50mL 50 ML IV SCH (04:30)
[2017-08-10] MEDS: NOREPINEPHRINE 8 MG/250ML KIT 250 ML IV SCH (04:30)
[2017-08-10 04:55] LABS: Albumin 1.7 g/dL (3.4-5.0); BUN/Creatinine Ratio 64.2; Bilirubin, Total 0.3 mg/dL (0.2-1.0); Calcium 7.4 mg/dL (8.5-10.1); Magnesium 2.3 mg/dL (1.6-2.6); Phosphorus 3.3 mg/dL (2.5-4.90); Potassium 4.2 mmol/L (3.5-5.1); Total Protein 5.6 g/dL (6.4-8.2)
[2017-08-10] MEDS: PANTOPRAZOLE 40 MG/10 ML VIAL IV SCH (09:45)
[2017-08-10] MEDS: ENOXAPARIN SOD 60 MG/0.6 ML SYRINGE SC SCH ×2 (09:45→22:00)
[2017-08-10] MEDS: FLUCONAZOLE 200MG/100ML 100 ML IV SCH ×2 (10:00→11:00)
[2017-08-10 10:59] LABS: Hematocrit 26.5 % (41.0-53.0); Hemoglobin 8.6 g/dL (13.5-17.5); Mean Corpuscular Hemoglobin 29.4 pg (28.0-32.0); Mean Corpuscular Hgb Conc. 32.3 g/dL (32.0-36.0); Mean Corpuscular Volume 90.9 fL (80.0-100.0); Platelet Count (auto) 373 10^3/uL (140-450); Red Blood Cells 2.91 10^6/uL (4.5-5.90); Red Cell Distribution Width 16.1 % (11.8-14.3); White Blood Cell 11.2 10^3/uL (4.4-10.8)
[2017-08-10 11:13] LABS: Basophils % (manual) 0 (0.0-2.0); Blast Cells 0; Eosinophils % (manual) 0 (0-7); Metamyelocytes % 0; Promyelocytes % 0; Reactive Lymphocytes 0
[2017-08-10] MEDS ORDERED: LORazepam 2MG/ML-1ML VIAL IV PRN (11:15)
[2017-08-10 12:14] LABS: Band Neutrophils % (manual) 1; Lymphocytes % (manual) 26 (10.0-50.0); Monocytes % (manual) 22 (0-12); Myelocytes % 2
[2017-08-10] MEDS: MORPHINE SULFATE 4 MG/ML SYR/VIAL IV PRN (13:15)
[2017-08-10] MEDS ORDERED: TPN PER PHARMACY IV NR ×12 (20:00)
[2017-08-11] MEDS: MEROPENEM 1gm/20ml IVPUSH 20 ML IV SCH ×2 (02:00→10:00)
[2017-08-11] MEDS: MORPHINE SULFATE 4 MG/ML SYR/VIAL IV PRN (03:02)
[2017-08-11 05:00] VITALS: BP 103/65
[2017-08-11] MEDS: InsuLIN REG 1unit/0.01ml Soln (100units/ml) SC SCH ×3 (06:00→12:00)
[2017-08-11] MEDS: ACCU-CHEK COMFORT CURVE STRIP VI SCH ×3 (06:00→12:00)
[2017-08-11 07:11] LABS: Hematocrit 28.3 % (41.0-53.0); Hemoglobin 9.1 g/dL (13.5-17.5); Mean Corpuscular Hemoglobin 29.5 pg (28.0-32.0); Mean Corpuscular Hgb Conc. 32.1 g/dL (32.0-36.0); Mean Corpuscular Volume 91.9 fL (80.0-100.0); Platelet Count (auto) 417 10^3/uL (140-450); Red Blood Cells 3.08 10^6/uL (4.5-5.90); Red Cell Distribution Width 16.4 % (11.8-14.3); White Blood Cell 17.2 10^3/uL (4.4-10.8)
[2017-08-11 07:18] LABS: BUN/Creatinine Ratio 44.9; Bilirubin, Total 0.5 mg/dL (0.2-1.0); Calcium 8.1 mg/dL (8.5-10.1); Magnesium 2.5 mg/dL (1.6-2.6); Potassium 5.3 mmol/L (3.5-5.1); Total Protein 6.3 g/dL (6.4-8.2)
[2017-08-11 07:34] LABS: Basophils % (manual) 0 (0.0-2.0); Blast Cells 0; Eosinophils % (manual) 0 (0-7); Metamyelocytes % 0; Promyelocytes % 0; Reactive Lymphocytes 0
[2017-08-11 09:00] VITALS: BP 118/74
[2017-08-11] MEDS: ENOXAPARIN SOD 60 MG/0.6 ML SYRINGE SC SCH (10:00)
[2017-08-11] MEDS: FLUCONAZOLE 200MG/100ML 100 ML IV SCH (13:00)
[2017-08-11 14:18] LABS: Band Neutrophils % (manual) 1; Lymphocytes % (manual) 17 (10.0-50.0); Monocytes % (manual) 9 (0-12); Myelocytes % 2
[2017-08-11 14:49] VITALS: BP 93/53
== END 2017-08-11 21:00 | disposition expired | DRG 853 ==
LOC: EDBD 18:50 → ER 18:50 → TELE 18:51 → ICU WEST 06-25 22:26 → DOU IN ICU 07-01 15:44 → TELE-WESTW 07-12 11:44 → TELE-EAST 07-12 23:00 → DOU IN ICU 07-15 17:21 → ICU WEST 07-22 06:10 → EAST 08-10 15:30
PROVIDERS: ADMIT Nurse Practitioner Family; ATTEND Family Medicine
PROC: 5A12012 Performance of Cardiac Output, Single, Manual (ICD-10-PCS; 2017-06-24)
PROC: 02H633Z Insertion of Infusion Device into Right Atrium, Percutaneous Approach (ICD-10-PCS; 2017-06-24)
PROC: 5A1955Z Respiratory Ventilation, Greater than 96 Consecutive Hours (ICD-10-PCS; principal; 2017-06-25)
PROC: 0BH17EZ Insertion of Endotracheal Airway into Trachea, Via Natural or Artificial Opening (ICD-10-PCS; 2017-06-25)
PROC: 027035Z Dilation of Coronary Artery, One Artery with Two Drug-eluting Intraluminal Devices, Percutaneous Approach (ICD-10-PCS; 2017-07-15)
PROC: 02C03ZZ Extirpation of Matter from Coronary Artery, One Artery, Percutaneous Approach (ICD-10-PCS; 2017-07-15)
PROC: B2161ZZ Fluoroscopy of Right and Left Heart using Low Osmolar Contrast (ICD-10-PCS; 2017-07-15)
PROC: B2111ZZ Fluoroscopy of Multiple Coronary Arteries using Low Osmolar Contrast (ICD-10-PCS; 2017-07-15)
PROC: 30233N1 Transfusion of Nonautologous Red Blood Cells into Peripheral Vein, Percutaneous Approach (ICD-10-PCS; 2017-07-16)
PROC: 4A023N7 Measurement of Cardiac Sampling and Pressure, Left Heart, Percutaneous Approach (ICD-10-PCS; 2017-07-18)
PROC: 027036Z Dilation of Coronary Artery, One Artery with Three Drug-eluting Intraluminal Devices, Percutaneous Approach (ICD-10-PCS; 2017-07-18)
DX: A41.9 Sepsis, unspecified organism (principal); I21.9 Acute myocardial infarction, unspecified; I46.9 Cardiac arrest, cause unspecified; J69.0 Pneumonitis due to inhalation of food and vomit; E43 Unspecified severe protein-calorie malnutrition; G93.1 Anoxic brain damage, not elsewhere classified; J96.01 Acute respiratory failure with hypoxia; N17.0 Acute kidney failure with tubular necrosis; K56.7 Ileus, unspecified; I50.43 Acute on chronic combined systolic (congestive) and diastolic (congestive) heart failure; R65.21 Severe sepsis with septic shock; E87.0 Hyperosmolality and hypernatremia; E87.1 Hypo-osmolality and hyponatremia; I42.9 Cardiomyopathy, unspecified; D69.6 Thrombocytopenia, unspecified; E66.01 Morbid (severe) obesity due to excess calories; I11.0 Hypertensive heart disease with heart failure; E78.00 Pure hypercholesterolemia, unspecified; E11.9 Type 2 diabetes mellitus without complications; Z66 Do not resuscitate; Z51.5 Encounter for palliative care; E78.5 Hyperlipidemia, unspecified; D64.9 Anemia, unspecified; E87.6 Hypokalemia; F17.200 Nicotine dependence, unspecified, uncomplicated; R55 Syncope and collapse; I25.10 Atherosclerotic heart disease of native coronary artery without angina pectoris; M85.80 Other specified disorders of bone density and structure, unspecified site; T50.2X5A Adverse effect of carbonic-anhydrase inhibitors, benzothiadiazides and other diuretics, initial encounter; Y92.89 Other specified places as the place of occurrence of the external cause; Z82.3 Family history of stroke; Z82.49 Family history of ischemic heart disease and other diseases of the circulatory system; Z95.810 Presence of automatic (implantable) cardiac defibrillator; Z86.79 Personal history of other diseases of the circulatory system; Z98.84 Bariatric surgery status; I25.2 Old myocardial infarction; Z68.36 Body mass index [BMI] 36.0-36.9, adult; Z88.2 Allergy status to sulfonamides; Z88.0 Allergy status to penicillin; Z88.1 Allergy status to other antibiotic agents
CPT/HCPCS: 31500; 36415; 36556; 36600; 51702; 70450; 71045; 71260; 74176; 76881; 80048; 80053; 80202; 80307; 81001; 82040; 82270; 82570; 82805; 82962; 83036; 83605; 83735; 83880; 83930; 83935; 84100; 84132; 84300; 84478; 84484; 85007; 85014; 85018; 85025; 85027; 85610; 85730; 86850; 86900; 86901; 86920; 87040; 87070; 87081; 87086; 87205; 87400; 87493; 92523; 92610; 92928; 92950; 93005; 93306; 93458; 93971; 94002; 94003; 94640; 95819; 96361; 96374; 96375; 96379; 97110; 97163; 97530; 99152; 99291; A4565; C1751; C1874; C9113; J0610; J1450; J1815; J1956; J2001; J2250; J2704; J3480; J3490; J7042; J7060; J7131; Q9967